=== PATIENT | female | born 1955 | race Caucasian/White ===

== ENCOUNTER 2018-05-05 13:54 | Emergency (ER) | payer OTHER ==
[2018-05-05] MEDS ORDERED: IBUPROFEN 400 MG TAB PO STA (14:59)
[2018-05-05] MEDS ORDERED: LIDOCAINE 5% PATCH TOPICAL STA (14:59)
[2018-05-05] MEDS ORDERED: METHOCARBAMOL 750 MG TAB PO STA (14:59)
--- NOTE | 2018-05-05 15:03 | ED ---
Back Pain HPI - General Chief Complaint: Back Pain/Injury Stated Complaint: Fall/Back Pain Time Seen by Provider: 05/05/18 14:45 Source: patient Limitations: no limitations - History of Present Illness Initial Comments: this is a 62-year-old female with history of diabetes who presents emergency department for left-sided flank pain. She states that she fell a couple of weeks ago between the toilet and the bathtub. She states that she hit her left flank on the bathtub and has had pain ever since. She states that she has not been taking anything for the pain however the pain has not subsided so she decided come emergency department. She denies any difficulty with ambulation. No numbness, tingling, or weakness in her lower [place]. No saddle anesthesia. No bowel or bladder incontinence. She states that she has not had any hematuria or dysuria. No fevers or chills. No shortness of breath or cough. She states that she presents emergency department because the pain was persistent and she wanted to be evaluated. - Related Data Home Medications Medication Instructions Recorded Confirmed Atorvastatin [Lipitor] 20 mg PO DAILY 05/05/18 05/05/18 Furosemide [Lasix] 20 mg PO BID 05/05/18 05/05/18 Gabapentin [Neurontin] 100 mg PO TID 05/05/18 05/05/18 Gemfibrozil [Lopid] 600 mg PO AC-BID 05/05/18 05/05/18 Hydrochlorothiazide 12.5 mg PO DAILY 05/05/18 05/05/18 Insulin Aspart [NovoLOG 10 unit SQ AC-BRKFST 05/05/18 05/05/18 (formulary)] Insulin Aspart [NovoLOG 10 unit SQ AC-LUNCH 05/05/18 05/05/18 (formulary)] Insulin Aspart [NovoLOG 12 unit SQ AC-SUPPER 05/05/18 05/05/18 (formulary)] Insulin Glargine [Lantus] 38 units SQ BID 05/05/18 05/05/18 Levothyroxine Sodium [Synthroid] 150 mcg PO DAILY 05/05/18 05/05/18 Metoprolol Succinate (ER) [Toprol 50 mg PO DAILY 05/05/18 05/05/18 Xl] Pioglitazone [Actos] 30 mg PO DAILY 05/05/18 05/05/18 Previous Rx's Medication Instructions Recorded Methocarbamol [Robaxin-750] 750 mg PO TID PRN #15 tablet 05/05/18 Allergies Allergy/AdvReac Type Severity Reaction Status Date / Time barium sulfate Allergy Unknown Verified 05/05/18 15:00 iodine Allergy Unknown Verified 05/05/18 15:00 Review of Systems ROS Statement: Those systems with pertinent positive or pertinent negative responses have been documented in the HPI. ROS Other: All systems not noted in ROS Statement are negative. Past Medical History Past Medical History: Diabetes Mellitus, Hyperlipidemia, Hypertension, Pneumonia , Thyroid Disorder History of Any Multi-Drug Resistant Organisms: None Reported Past Surgical History: No Surgical Hx Reported Past Psychological History: No Psychological Hx Reported Smoking Status: Never smoker Past Alcohol Use History: Rare Past Drug Use History: None Reported General Exam - General Exam Comments Initial Comments: Constitutional: [Awake alert] [Appears comfortable] Head: [Normocephalic atraumatic] Eyes: [no conjunctival injection] [No scleral icterus] [EOMI] Neck: [No JVD] [Supple] Heart: [Regular rate rhythm] [normal S1-S2] [no murmurs] Lungs: [Clear to auscultation bilaterally] [No wheezing] [No rales] Abdomen: [Soft] [nondistended] [nontender] Back: Left-sided lower flank pain radiating up into the thoracic flank. There is no midline lumbar or thoracic tenderness Extremities: [Non edematous] [DP pulses intact] [Radial pulses intact], 5 out of 5 strength in bilateral lower extremities, 2 out of 4 patellar reflexes, sensation intact to light touch in bilateral lower extremities Neuro: [A&Ox3] [No focal neurologic deficits] Psych: [Appropriate mood and affect] Limitations: no limitations Course Vital Signs 05/05/18 05/05/18 14:32 15:55 Temperature 100.2 F H 98.8 F Pulse Rate 74 Respiratory 20 Rate Blood Pressure 129/79 O2 Sat by Pulse 90 L Oximetry Medical Decision Making - Medical Decision Making This is a 62-year-old female who came in for left-sided flank pain for last couple of weeks after a fall. X-rays were reviewed and did not show any acute fracture. UA did show some pyuria however patient is not complaining of any dysuria or hematuria. Urine was obtained because of a falsely elevated temperature in triage. Repeat temperature at bedside was 98.8. I stated that if the patient did not have any symptoms of UTI with to treat her pyuria however if she developed any signs of urinary tract infection she needed to call her family doctor for a prescription for antibiotics. Otherwise the patient's pain was much improved with Lidoderm patch and Robaxin. At this time going to send the patient home with her prescription for Robaxin. 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 Told to take Motrin 400 mg 3 times a day for the next 7 days as well. Return emergency Department if she has worsening or changing symptoms. All questions answered. - Lab Data Lab Results 05/05/18 Range/Units 15:23 Urine Color Yellow Urine Appearance Clear (Clear) Urine pH 6.0 (5.0-8.0) Ur Specific [place] 1.012 (1.001-1.035) Urine Protein Trace H (Negative) Urine Glucose (UA) Negative (Negative) Urine Ketones Negative (Negative) Urine Blood Negative (Negative) Urine Nitrite Negative (Negative) Urine Bilirubin Negative (Negative) Urine Urobilinogen <2.0 (<2.0) mg/dL Ur Leukocyte Esterase Small H (Negative) Urine RBC 1 (0-5) /hpf Urine WBC 22 H (0-5) /hpf Urine WBC Clumps Rare H (None) /hpf Ur Squamous Epith Cells 2 (0-4) /hpf Amorphous Sediment Rare H (None) /hpf Urine Bacteria Rare H (None) /hpf Hyaline Casts 7 H (0-2) /lpf Urine Mucus Rare H (None) /hpf Disposition Clinical Impression: Flank pain Disposition: HOME SELF-CARE Condition: Stable Instructions: Rib Contusion (ED) Additional Instructions: net application support specialist Salonpas patches from pharmacy. Take 400mg Motrin three times a day for the next week. Prescriptions: Methocarbamol [Robaxin-750] 750 mg PO TID PRN #15 tablet PRN Reason: Muscle Ache Is patient prescribed a controlled substance at d/c from ED?: No Referrals: None,Stated [Primary Care Provider] - 1-2 days
[2018-05-05 15:44] LABS: Amorphous Sediment,Urine Rare /hpf; Appearance,Urine Clear (Clear); Bacteria,Urine Rare /hpf; Bilirubin,Urine Negative (Negative); Blood,Urine Negative (Negative); Color,Urine Yellow; Glucose,Urine (UA) Negative (Negative); Hyaline Casts,Urine 7 /lpf (0-2); Ketones,Urine Negative (Negative); Leukocyte Esterase,Urine Small (Negative); Mucus,Urine Rare /hpf; Nitrite,Urine Negative (Negative); Protein,Urine Trace (Negative); RBC,Urine 1 /hpf (0-5); Specific Gravity,Urine 1.012 (1.001-1.035); Squamous Epithelial Cell,Urine 2 /hpf (0-4); Urobilinogen,Urine <2.0 mg/dL (<2.0); WBC,Urine 22 /hpf (0-5)
--- NOTE | 2018-05-05 16:33 | XR ---
EXAMINATION TYPE: XR pelvis AP view DATE OF EXAM: 05/05/2018 COMPARISON: None HISTORY: Fall, left flank pain TECHNIQUE: AP pelvis FINDINGS: No acute fractures are evident. Femoral heads articulate with the acetabulum. Symphysis pub is and sacroiliac joints are normal. Normal colonic bowel gas is present. Phleboliths are present. IMPRESSION: 1. Normal AP pelvis
--- NOTE | 2018-05-05 16:36 | XR ---
EXAMINATION TYPE: XR ribs LT w pa chest xray DATE OF EXAM: 05/05/2018 COMPARISON: None HISTORY: Fall 2 weeks prior, left flank pain TECHNIQUE: Chest examined in the frontal projection. Left ribs are examined in 2 projections. FINDINGS: The heart size is prominent. Pulmonary vasculature is prominent. Lung hendricks are clear. No pneumothorax is evident. No displaced rib fractures are identified. IMPRESSION: 1. Normal left ribs
[2018-05-05 16:58] VITALS: BP 160/78; PULSE 67; RESP 18; TEMP 98.3
== END 2018-05-05 16:56 | disposition home or self-care (01) ==
LOC: EC 13:54
DX: R10.9 Unspecified abdominal pain (principal); E11.9 Type 2 diabetes mellitus without complications; E78.5 Hyperlipidemia, unspecified; I10 Essential (primary) hypertension; E07.9 Disorder of thyroid, unspecified; Z88.8 Allergy status to other drugs, medicaments and biological substances; Z91.048 Other nonmedicinal substance allergy status; Z79.4 Long term (current) use of insulin; Z79.84 Long term (current) use of oral hypoglycemic drugs; Z79.899 Other long term (current) drug therapy; W01.198A Fall on same level from slipping, tripping and stumbling with subsequent striking against other object, initial encounter; Y92.89 Other specified places as the place of occurrence of the external cause
CPT/HCPCS: 72170; 81001; 99284

== ENCOUNTER 2018-05-08 19:28 | Inpatient (IN) | payer OTHER ==
[2018-05-08] MEDS ORDERED: IPRATROPIUM-ALBUTEROL 3 ML NEB INHALATION STA (19:52)
[2018-05-08] MEDS ORDERED: FUROSEMIDE 10 MG/ML 4 ML VIAL IV STA (19:55)
--- NOTE | 2018-05-08 19:55 | ED ---
General Adult HPI - General Chief complaint: Recheck/Abnormal Lab/Rx Stated complaint: leg swelling & pain Time Seen by Provider: 05/08/18 19:51 Source: patient, RN notes reviewed Mode of arrival: wheelchair Limitations: no limitations - History of Present Illness Initial comments: This is a 63-year-old female who presents with complaints of progressively worsening shortness of breath exertional dyspnea over the past several weeks and months she does states she's had about 75 pound weight gain over last several months. She's been on various courses of water pills without any resolution she states she has increased swelling to her lower extremities increased abdominal girth. She has exertional dyspnea per family she states she cannot walk perhaps 3 steps without getting short of breath. No chest pain fevers chills nausea vomiting sweats or other symptoms she's had decreased urine output also. - Related Data Home Medications Medication Instructions Recorded Confirmed Atorvastatin [Lipitor] 20 mg PO DAILY 05/05/18 05/08/18 Furosemide [Lasix] 20 mg PO BID 05/05/18 05/08/18 Gabapentin [Neurontin] 100 mg PO TID 05/05/18 05/08/18 Gemfibrozil [Lopid] 600 mg PO AC-BID 05/05/18 05/08/18 Hydrochlorothiazide 12.5 mg PO DAILY 05/05/18 05/08/18 Insulin Aspart [NovoLOG 12 unit SQ AC-BRKFST 05/05/18 05/08/18 (formulary)] Insulin Aspart [NovoLOG 12 unit SQ AC-LUNCH 05/05/18 05/08/18 (formulary)] Insulin Aspart [NovoLOG 12 unit SQ AC-SUPPER 05/05/18 05/08/18 (formulary)] Insulin Glargine [Lantus] 38 units SQ BID 05/05/18 05/08/18 Levothyroxine Sodium [Synthroid] 150 mcg PO DAILY 05/05/18 05/08/18 Metoprolol Succinate (ER) [Toprol 50 mg PO DAILY 05/05/18 05/08/18 Xl] Pioglitazone [Actos] 30 mg PO DAILY 05/05/18 05/08/18 Previous Rx's Medication Instructions Recorded Methocarbamol [Robaxin-750] 750 mg PO TID PRN #15 tablet 05/05/18 Allergies Allergy/AdvReac Type Severity Reaction Status Date / Time barium sulfate Allergy Unknown Verified 05/08/18 19:56 iodine Allergy Unknown Verified 05/08/18 19:56 Review of Systems ROS Statement: Those systems with pertinent positive or pertinent negative responses have been documented in the HPI. ROS Other: All systems not noted in ROS Statement are negative. Past Medical History Past Medical History: Diabetes Mellitus, Hyperlipidemia, Hypertension, Pneumonia , Thyroid Disorder History of Any Multi-Drug Resistant Organisms: None Reported Past Surgical History: No Surgical Hx Reported Past Psychological History: No Psychological Hx Reported Smoking Status: Never smoker Past Alcohol Use History: Rare Past Drug Use History: None Reported General Exam - General Exam Comments Initial Comments: This is a well-developed obese appearing female who is awake alert oriented 3 Limitations: no limitations General appearance: alert, anxious Head exam: Present: atraumatic, normocephalic, normal inspection Eye exam: Present: normal appearance, PERRL, EOMI. Absent: scleral icterus, conjunctival injection, periorbital swelling ENT exam: Present: normal exam, mucous membranes moist Neck exam: Present: normal inspection. Absent: tenderness, meningismus, lymphadenopathy Respiratory exam: Present: wheezes, decreased breath sounds. Absent: respiratory distress, rales, rhonchi, stridor Cardiovascular Exam: Present: regular rate, normal rhythm, normal heart sounds. Absent: systolic murmur, diastolic murmur, rubs, gallop, clicks GI/Abdominal exam: Present: soft, normal bowel sounds. Absent: distended, tenderness, guarding, rebound, rigid Extremities exam: Present: normal inspection, full ROM, normal capillary refill , pedal edema (Pila edema going up to the knees in past.). Absent: tenderness, joint swelling, calf tenderness Back exam: Present: normal inspection Neurological exam: Present: alert, oriented X3, CN II-XII intact Psychiatric exam: Present: normal affect, normal mood Skin exam: Present: warm, dry, intact, normal color. Absent: rash Course Vital Signs 05/08/18 05/08/18 05/08/18 19:35 20:09 20:30 Temperature 98.9 F Pulse Rate 87 82 80 Respiratory 18 18 Rate Blood Pressure 119/72 143/68 O2 Sat by Pulse 89 L 96 Oximetry 05/08/18 05/08/18 05/08/18 20:42 21:11 22:55 Temperature Pulse Rate 80 78 79 Respiratory 20 20 Rate Blood Pressure 143/68 156/88 O2 Sat by Pulse 95 96 Oximetry 05/09/18 00:47 Temperature 98.7 F Pulse Rate 82 Respiratory 22 Rate Blood Pressure 126/71 O2 Sat by Pulse 96 Oximetry EKG Findings - EKG Results: EKG: interpreted by JAZMYN, sinus rhythm (Sinus rhythm rate of 88. Interval 150 to QRS 90 QT since QTC 388/469 possible left atrial enlargement nonspecific inferior findings.) Medical Decision Making - Medical Decision Making Reevaluation patient reveals some improvement after the updraft treatment. I did discuss findings with the patient family patient will be admitted case is to be discussed with Dr. Clifford. - Lab Data Result diagrams: 05/08/18 20:06 05/08/18 20:10 Lab Results 05/08/18 05/08/18 05/08/18 Range/Units 20:06 20:10 20:10 WBC 8.1 (3.8-10.6) k/uL RBC 4.49 (3.80-5.40) m/uL Hgb 12.8 (11.4-16.0) gm/dL Hct 40.1 (34.0-46.0) % MCV 89.4 (80.0-100.0) fL MCH 28.4 (25.0-35.0) pg MCHC 31.8 (31.0-37.0) g/dL RDW 15.5 (11.5-15.5) % Plt Count 367 (150-450) k/uL Neutrophils % 69 % Lymphocytes % 19 % Monocytes % 7 % Eosinophils % 3 % Basophils % 1 % Neutrophils # 5.6 (1.3-7.7) k/uL Lymphocytes # 1.5 (1.0-4.8) k/uL Monocytes # 0.6 (0-1.0) k/uL Eosinophils # 0.2 (0-0.7) k/uL Basophils # 0.0 (0-0.2) k/uL Hypochromasia Slight PT (9.0-12.0) sec INR (<1.2) APTT (22.0-30.0) sec D-Dimer (<0.60) mg/L FEU Sodium 140 (137-145) mmol/L Potassium 3.6 (3.5-5.1) mmol/L Chloride 96 L (98-107) mmol/L Carbon Dioxide 37 H (22-30) mmol/L Anion Gap 7 mmol/L BUN 21 H (7-17) mg/dL Creatinine 0.91 (0.52-1.04) mg/dL Est GFR (CKD-EPI)AfAm 78 (>60 ml/min/1.73 sqM) Est GFR (CKD-EPI)NonAf 68 (>60 ml/min/1.73 sqM) Glucose 131 H (74-99) mg/dL Calcium 9.1 (8.4-10.2) mg/dL Magnesium 1.8 (1.6-2.3) mg/dL Total Bilirubin 0.3 (0.2-1.3) mg/dL AST 31 (14-36) U/L ALT 37 (9-52) U/L Alkaline Phosphatase 67 (38-126) U/L Total Creatine Kinase 157 H (30-135) U/L CK-MB (CK-2) 2.5 H* (0.0-2.4) ng/mL CK-MB (CK-2) Rel Index 1.6 Troponin I 0.017 (0.000-0.034) ng/mL NT-Pro-B Natriuret Pep pg/mL Total Protein 6.1 L (6.3-8.2) g/dL Albumin 3.7 (3.5-5.0) g/dL 05/08/18 05/08/18 Range/Units 20:10 20:10 WBC (3.8-10.6) k/uL RBC (3.80-5.40) m/uL Hgb (11.4-16.0) gm/dL Hct (34.0-46.0) % MCV (80.0-100.0) fL MCH (25.0-35.0) pg MCHC (31.0-37.0) g/dL RDW (11.5-15.5) % Plt Count (150-450) k/uL Neutrophils % % Lymphocytes % % Monocytes % % Eosinophils % % Basophils % % Neutrophils # (1.3-7.7) k/uL Lymphocytes # (1.0-4.8) k/uL Monocytes # (0-1.0) k/uL Eosinophils # (0-0.7) k/uL Basophils # (0-0.2) k/uL Hypochromasia PT 10.1 (9.0-12.0) sec INR 1.0 (<1.2) APTT 27.5 (22.0-30.0) sec D-Dimer 2.43 H (<0.60) mg/L FEU Sodium (137-145) mmol/L Potassium (3.5-5.1) mmol/L Chloride (98-107) mmol/L Carbon Dioxide (22-30) mmol/L Anion Gap mmol/L BUN (7-17) mg/dL Creatinine (0.52-1.04) mg/dL Est GFR (CKD-EPI)AfAm (>60 ml/min/1.73 sqM) Est GFR (CKD-EPI)NonAf (>60 ml/min/1.73 sqM) Glucose (74-99) mg/dL Calcium (8.4-10.2) mg/dL Magnesium (1.6-2.3) mg/dL Total Bilirubin (0.2-1.3) mg/dL AST (14-36) U/L ALT (9-52) U/L Alkaline Phosphatase (38-126) U/L Total Creatine Kinase (30-135) U/L CK-MB (CK-2) (0.0-2.4) ng/mL CK-MB (CK-2) Rel Index Troponin I (0.000-0.034) ng/mL NT-Pro-B Natriuret Pep 1020 pg/mL Total Protein (6.3-8.2) g/dL Albumin (3.5-5.0) g/dL - Radiology Data Radiology results: report reviewed (I did review the imaging and report is some evidence of interstitial infiltrate atelectasis no evidence of PE.), image reviewed Disposition Clinical Impression: Bronchospasm, acute, Edema, Elevated d-dimer, Hypoxemia Disposition: ADMITTED IP TO THIS [facility] Condition: Stable Referrals: Tan Herndon MD [Primary Care Provider] - 1-2 days
[2018-05-08 20:20] LABS: Basophils % (A) 1 %; Eosinophils # (A) 0.2 k/uL (0-0.7); Eosinophils % (A) 3 %; HCT 40.1 % (34.0-46.0); HGB 12.8 gm/dL (11.4-16.0); Hypochromasia Slight; Lymphocytes # (A) 1.5 k/uL (1.0-4.8); Lymphocytes % (A) 19 %; MCH 28.4 pg (25.0-35.0); MCHC 31.8 g/dL (31.0-37.0); MCV 89.4 fL (80.0-100.0); Mean Platelet Volume 6.7; Monocytes # (A) 0.6 k/uL (0-1.0); Monocytes % (A) 7 %; Neutrophils # (A) 5.6 k/uL (1.3-7.7); Neutrophils % (A) 69 %; Platelet Count 367 k/uL (150-450); RBC 4.49 m/uL (3.80-5.40); RDW 15.5 % (11.5-15.5); WBC 8.1 k/uL (3.8-10.6)
[2018-05-08 20:38] LABS: Albumin 3.7 g/dL (3.5-5.0); Calcium 9.1 mg/dL (8.4-10.2); Magnesium 1.8 mg/dL (1.6-2.3); Potassium 3.6 mmol/L (3.5-5.1); Total Bilirubin 0.3 mg/dL (0.2-1.3); Total Protein 6.1 g/dL (6.3-8.2)
[2018-05-08 20:45] LABS: Partial Thromboplastin Time 27.5 sec (22.0-30.0); Prothrombin Time 10.1 sec (9.0-12.0)
[2018-05-08 20:50] LABS: Troponin I 0.017 ng/mL (0.000-0.034)
[2018-05-08 20:54] LABS: Creatine Kinase MB 2.5 ng/mL (0.0-2.4)
[2018-05-08 20:58] LABS: D-Dimer 2.43 mg/L FEU (<0.60)
[2018-05-08] MEDS ORDERED: diphenhydrAMINE 50 MG/ML 1 ML VIAL IVP STA (21:17)
[2018-05-08] MEDS ORDERED: FAMOTIDINE 20 MG/2 ML VIAL IV STA (21:17)
[2018-05-08] MEDS ORDERED: methylPREDNISolone SOD SUCCI 125 MG/2 ML VIAL IV STA (21:17)
--- NOTE | 2018-05-08 21:35 | XR ---
EXAMINATION TYPE: XR chest 2V DATE OF EXAM: 05/08/2018 COMPARISON: 05/05/2018 HISTORY: Difficulty breathing TECHNIQUE: Frontal and lateral views of the chest are obtained. FINDINGS: Heart is enlarged. There is some linear density in the left midlung. There is no pleural e ffusion. Bony thorax is intact. There are chest leads. IMPRESSION: Subsegmental atelectasis. Moderate cardiomegaly. No heart failure. No pulmonary consolid ation. No change.
--- NOTE | 2018-05-08 22:35 | CT ---
EXAMINATION TYPE: CT angio chest DATE OF EXAM: 05/08/2018 10:22 PM COMPARISON: HISTORY: Cough with SOB CT DLP: 759.5 mGycm Automated exposure control for dose reduction was used. CONTRAST: CTA scan of the thorax is performed with IV Contrast, patient injected with 100 mL of Isovue 370, pul monary embolism protocol. There are 3-D post processed images.. FINDINGS: Heart is enlarged. There is some patchy density at the lung bases. There is mild pleural thickening a t the posterior lung bases. There is no evidence of aortic aneurysm or dissection. There is normal contrast opacification of the pulmonary arteries. I see no filling defect. There are a few mediastinal and bronchial lymph nodes th at measure up to 1 cm. IMPRESSION: CARDIOMEGALY. NO EVIDENCE OF PULMONARY EMBOLISM. INTERSTITIAL INFILTRATES AND ATELECTASIS AT THE POST ERIOR LUNG BASES.
[2018-05-09] MEDS ORDERED: METHOCARBAMOL 750 MG TAB PO PRN (00:55)
[2018-05-09] MEDS ORDERED: cefTRIAXone IN SWFI 1,000 MG/10 ML SYRINGE IVP STA (01:18)
[2018-05-09] MEDS ORDERED: IPRATROPIUM-ALBUTEROL 3 ML NEB INHALATION PRN (01:21)
[2018-05-09 02:16] LABS: Glucose,Whole Blood 197 mg/dL (75-99)
[2018-05-09 02:21] VITALS: BMI 50.3
[2018-05-09] MEDS ORDERED: IPRATROPIUM-ALBUTEROL 3 ML NEB INHALATION SCH (04:00)
[2018-05-09] MEDS: LEVOTHYROXINE 75 MCG TAB PO SCH (06:05)
[2018-05-09] MEDS: methylPREDNISolone SOD SUCCI 125 MG/2 ML VIAL IV SCH ×4 (06:05→23:52)
[2018-05-09] MEDS: IPRATROPIUM-ALBUTEROL 3 ML NEB INHALATION SCH ×4 (06:55→19:46)
[2018-05-09 07:58] LABS: Glucose,Whole Blood 275 mg/dL (75-99)
[2018-05-09] MEDS: INSULIN ASPART 100 UNIT/ML 1 ML 10 ML VIAL SQ SCH ×5 (08:12→21:54)
[2018-05-09] MEDS: GEMFIBROZIL 600 MG TAB PO SCH ×2 (08:14→17:38)
[2018-05-09] MEDS: HEPARIN SODIUM,PORCINE 5,000 UNIT/ML 1 ML VIAL SQ SCH ×3 (08:14→23:52)
[2018-05-09] MEDS: ATORVASTATIN 20 MG TAB PO SCH (08:15)
[2018-05-09] MEDS: FUROSEMIDE 10 MG/ML 4 ML VIAL IV SCH ×2 (08:15→21:53)
[2018-05-09] MEDS: HYDROCHLOROTHIAZIDE 12.5 MG CAP PO SCH (08:16)
[2018-05-09] MEDS: METOPROLOL SUCCINATE (ER) 50 MG TAB.ER.24H PO SCH (08:16)
[2018-05-09] MEDS: GABAPENTIN 100 MG CAP PO SCH ×3 (08:16→21:56)
[2018-05-09] MEDS ORDERED: INSULIN DETEMIR 100 UNIT/ML 10 ML VIAL SQ SCH (09:00)
[2018-05-09] MEDS ORDERED: FUROSEMIDE 20 MG TAB PO SCH (09:00)
[2018-05-09] MEDS ORDERED: PIOGLITAZONE 30 MG TAB PO SCH (09:00)
--- NOTE | 2018-05-09 10:03 | P.HPIM ---
History of Present Illness H&P Date: 05/09/18 Chief Complaint: Shortness of breath, weight gain of 80 pounds This is a 63-year-old female patient of Dr. Herndon with past medical history of diabetes mellitus type 2, insulin requiring, hypothyroidism, hypertension, hyperlipidemia. Patient also gives history of recent treatment for pneumonia over 2 months but not needing hospitalization. She recently saw Dr. Zelaya contact lens flashing puncher who placed her on some medications and she states that since then over the past 3 months she has gained 80 pounds. She was sent to land appraiser, Dr. Daniel and is scheduled for stress testing on Saturday. She is unclear if she had any other testing done in the office. She is also been sent to Dr. Fournier and is scheduled for coronary function testing. She complains of her legs hurting and shortness of breath that has continued to worsen along with the weight gain. She has been on Lasix and hydrochlorothiazide but she states she goes more than 8 hours without voiding at all. She is able to walk only 3 steps. She has had no recent falls at home. Her last fall was on April 20 at which time she fell in the bathroom and had pain on the left side of her chest posteriorly but apparently was evaluated for this with no fractures. Patient has been afebrile, initial pulse ox 89% and patient has been on 2 L nasal cannula. White count is normal at 8.1, hemoglobin 12.8, CO2 is 37. D-dimer was elevated at 2.43 and patient underwent a CTA of the chest that was negative for pulmonary embolism. There was interstitial infiltrates and atelectasis at the posterior lung bases. Chest x- ray showed subsegmental atelectasis. Moderate cardiomegaly. No heart failure. No pulmonary consolidation. No change. Patient was apparently placed on insulin and Actos 3 months ago. In the emergency center she was given 1 dose of ceftriaxone, started on DuoNeb treatments and Solu-Medrol as well as Lasix 40 mg IV every 12 hours. Review of Systems All systems: negative Constitutional: Reports fatigue, Reports weakness, Reports weight gain, Denies chills, Denies fever, Denies poor appetite, Denies weight loss Eyes: denies blurred vision, denies pain Ears, nose, mouth and throat: Denies dental pain, Denies headache, Denies mouth pain, Denies sore throat, Denies vertigo Cardiovascular: Reports decreased exercise tolerance, Reports dyspnea on exertion, Reports edema, Reports leg edema, Reports shortness of breath, Denies chest pain, Denies lightheadedness, Denies syncope Respiratory: Reports cough, Reports dyspnea, Denies cough with sputum, Denies excessive sputum, Denies hemoptysis, Denies home oxygen, Denies wheezing Gastrointestinal: Reports bloating, Denies abdominal pain, Denies diarrhea, Denies melena, Denies nausea, Denies vomiting Genitourinary: Denies dysuria, Denies hematuria, Denies urgency Musculoskeletal: Denies frequent falls, Denies myalgias Integumentary: Denies pruritus, Denies rash, Denies wounds Neurological: Reports memory loss, Denies change in mentation, Denies numbness, Denies weakness Psychiatric: Denies anxiety, Denies depression Endocrine: Denies fatigue, Denies weight change Past Medical History Past Medical History: Diabetes Mellitus, Hyperlipidemia, Hypertension, Pneumonia , Thyroid Disorder History of Any Multi-Drug Resistant Organisms: None Reported Past Surgical History: No Surgical Hx Reported Additional Past Surgical History / Comment(s): Right knee meniscus repair. Past Anesthesia/Blood Transfusion Reactions: No Reported Reaction Past Psychological History: No Psychological Hx Reported Smoking Status: Never smoker Past Alcohol Use History: Rare Past Drug Use History: None Reported Medications and Allergies Home Medications Medication Instructions Recorded Confirmed Type Atorvastatin [Lipitor] 20 mg PO DAILY 05/05/18 05/08/18 History Furosemide [Lasix] 20 mg PO BID 05/05/18 05/08/18 History Gabapentin [Neurontin] 100 mg PO TID 05/05/18 05/08/18 History Gemfibrozil [Lopid] 600 mg PO AC-BID 05/05/18 05/08/18 History Hydrochlorothiazide 12.5 mg PO DAILY 05/05/18 05/08/18 History Insulin Aspart [NovoLOG 12 unit SQ AC-BRKFST 05/05/18 05/08/18 History (formulary)] Insulin Aspart [NovoLOG 12 unit SQ AC-LUNCH 05/05/18 05/08/18 History (formulary)] Insulin Aspart [NovoLOG 12 unit SQ AC-SUPPER 05/05/18 05/08/18 History (formulary)] Insulin Glargine [Lantus] 38 units SQ BID 05/05/18 05/08/18 History Levothyroxine Sodium [Synthroid] 150 mcg PO DAILY 05/05/18 05/08/18 History Methocarbamol [Robaxin-750] 750 mg PO TID PRN #15 tablet 05/05/18 05/08/18 Rx Metoprolol Succinate (ER) [Toprol 50 mg PO DAILY 05/05/18 05/08/18 History Xl] Pioglitazone [Actos] 30 mg PO DAILY 05/05/18 05/08/18 History Allergies Allergy/AdvReac Type Severity Reaction Status Date / Time barium sulfate Allergy Unknown Verified 05/09/18 02:31 iodine Allergy Unknown Verified 05/09/18 02:31 Physical Exam Vitals: Vital Signs Temp Pulse Pulse Resp BP BP Pulse Ox 05/09/18 07:04 87 16 05/09/18 06:55 87 16 96 05/09/18 05:55 97.1 F L 92 20 142/74 91 L 05/09/18 02:07 98.4 F 84 20 120/71 93 L 05/09/18 00:47 98.7 F 82 22 126/71 96 05/08/18 22:55 79 20 156/88 96 05/08/18 21:11 78 20 143/68 95 05/08/18 20:42 80 05/08/18 20:30 80 05/08/18 20:09 82 18 143/68 96 05/08/18 19:35 98.9 F 87 18 119/72 89 L Intake and Output 05/08/18 05/09/18 05/09/18 22:59 06:59 14:59 Other: Voiding Method Bedside Commode # Voids 2 Weight 133 kg 133 kg Gen: This is a morbidly obese 63-year-old female. She is sitting on the edge of the bed and appears to be mildly dyspneic with conversation. HEENT: Head is atraumatic, normocephalic. Pupils equal, round. Sclerae is anicteric. Oral mucous membranes are dry. No thrush noted. NECK: Supple. No lymphadenopathy. No thyromegaly. LUNGS: Decreased breath sounds. No wheezes or rhonchi. No intercostal retractions. HEART: Regular rate and rhythm. No murmur. ABDOMEN: Morbidly obese. Firm, bloated. Bowel sounds are present. No masses. No tenderness. EXTREMITIES: 2+ bilateral pedal edema. No calf tenderness. NEUROLOGICAL: Patient is awake, alert and oriented x3. Cranial nerves 2 through 12 are grossly intact. Results CBC & Chem 7: 05/08/18 20:06 05/08/18 20:10 Labs: Abnormal Lab Results - Last 24 Hours (Table) 05/08/18 05/08/18 05/08/18 Range/Units 20:10 20:10 20:10 D-Dimer 2.43 H (<0.60) mg/L FEU Chloride 96 L (98-107) mmol/L Carbon Dioxide 37 H (22-30) mmol/L BUN 21 H (7-17) mg/dL Glucose 131 H (74-99) mg/dL POC Glucose (mg/dL) (75-99) mg/dL Total Creatine Kinase 157 H (30-135) U/L CK-MB (CK-2) 2.5 H* (0.0-2.4) ng/mL Total Protein 6.1 L (6.3-8.2) g/dL 05/09/18 05/09/18 Range/Units 02:11 07:24 D-Dimer (<0.60) mg/L FEU Chloride (98-107) mmol/L Carbon Dioxide (22-30) mmol/L BUN (7-17) mg/dL Glucose (74-99) mg/dL POC Glucose (mg/dL) 197 H 275 H (75-99) mg/dL Total Creatine Kinase (30-135) U/L CK-MB (CK-2) (0.0-2.4) ng/mL Total Protein (6.3-8.2) g/dL Thrombosis Risk Factor Assmnt - DVT/VTE Prophylaxis DVT/VTE Prophylaxis: Pharmacologic Prophylaxis ordered - Choose All That Apply Any of the Below Risk Factors Present?: Yes Assessment and Plan Plan: 1. Acute hypoxic and hypercapnic respiratory failure secondary to acute on chronic diastolic heart failure, possible pneumonia or atelectasis. Patient's been started on Lasix 40 mg IV every 12 hours, azithromycin and ceftriaxone, DuoNeb treatments 4 times daily and as needed, IV Solu-Medrol at 60 mg IV every 6 hours. Daily weights and I&O's. Echocardiogram ordered. Pulmonary consult with Dr. Fournier and cardiology consult. Actos has been discontinued. 2. Diabetes mellitus type 2. Continue insulin, Levemir will be increased from 38 units to 42 units while on steroids twice daily, NovoLog 12 units with breakfast, 12 units with lunch, 15 units with supper and NovoLog scale. Discontinue Actos due to heart failure symptoms. 3. Diabetic neuropathy. Continue gabapentin 100 mg 3 times daily. 4. Hypothyroidism. Continue levothyroxine 150 mg daily. 5. Hyperlipidemia. Continue atorvastatin 20 mg daily and Lopid 600 mg twice daily. 6. Hypertension. Continue metoprolol succinate 50 mg daily, hydrochlorothiazide 12.5 mg daily. 7. GI prophylaxis. Pepcid. 8. DVT prophylaxis. Heparin subcu. Patient will be admitted to the hospital for a minimum of 2 night stay. Discharge plan: To be determined. PT and OT. Impression and plan of care have been directed as dictated by the signing physician. Hermelinda Gunter nurse practitioner acting as scribe for signing physician.
--- NOTE | 2018-05-09 10:36 | US ---
EXAMINATION TYPE: US venous doppler duplex LE DATE OF EXAM: 05/09/2018 9:31 AM COMPARISON: NONE CLINICAL HISTORY: Pain. SOB, leg swelling, no known prior DVT SIDE PERFORMED: Bilateral TECHNIQUE: The lower extremity deep venous system is examined utilizing real time linear array sonog dee with graded compression, doppler sonography and color-flow sonography. VESSELS IMAGED: External Iliac Vein (EIV) Common Femoral Vein Deep Femoral Vein Greater Saphenous Vein * Femoral Vein Popliteal Vein Small Saphenous Vein * Proximal Calf Veins (* superficial vessels) Large pt body habitus, difficult exam Right Leg: Negative for DVT Left Leg: Negative for DVT Grayscale, color doppler, spectral doppler imaging performed of the deep veins of the lower extremiti es. There is normal flow, compressibility, vascular waveforms. IMPRESSION: Slightly limited exam secondary to patient body habitus, however there is no gross evide nce of deep venous thrombosis within the bilateral lower extremities.
[2018-05-09] MEDS: FAMOTIDINE 20 MG TAB PO SCH (10:51)
[2018-05-09] MEDS: AZITHROMYCIN 500 MG in DEXTROSE 5% IN WATER 250 ML IVPB SCH ×2 (10:51)
--- NOTE | 2018-05-09 12:06 | P.CNPUL ---
History of Present Illness Consult date: 05/09/18 Requesting physician: Mackenzie Clifford Reason for consult: dyspnea, pneumonia Chief complaint: Shortness of breath History of present illness: This is a 63-year-old female patient being seen examined and evaluated on rounds. This patient came into the hospital with worsening shortness of breath with exertion as well as at rest and significant edema and weight gain. The patient states she's gained over 70 pounds in the last 6 weeks. She has been on Lasix and hydrochlorothiazide in the past however she states she doesn't feel re-she responds well from it. She does not have much urine output at home. She was seen and examined in the emergency room and admitted for further evaluation and workup. The patient has required supplemental oxygen to maintain oxygen saturations greater than 90%. She did have a CO2 of 37. Her d- dimer was 2.43. She did undergo a CTA which was negative for any pulmonary embolism there was some infiltrates and atelectasis at the posterior lung bases. Her chest x-ray did show some subsegmental atelectasis with cardiomegaly. Patient has been initiated on nebulizer treatments and IV steroids. She did undergo an echocardiogram which shows pending at this time. Doppler studies of bilateral lower extremities were negative. She has never used home oxygen. She has never been worked up for WALDO states that she snores significantly loud at night and does wake up gasping for air. 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 She has never had a PFT. She is afebrile no further complaints. He is currently on 4 L of supplemental oxygen via nasal cannula. Does have a dry cough. Review of Systems 14 point review of systems was completed and is negative unless noted above in the HPI Past Medical History Past Medical History: Diabetes Mellitus, Hyperlipidemia, Hypertension, Pneumonia , Thyroid Disorder History of Any Multi-Drug Resistant Organisms: None Reported Past Surgical History: No Surgical Hx Reported Additional Past Surgical History / Comment(s): Right knee meniscus repair. Past Anesthesia/Blood Transfusion Reactions: No Reported Reaction Past Psychological History: No Psychological Hx Reported Smoking Status: Never smoker Past Alcohol Use History: Rare Past Drug Use History: None Reported Medications and Allergies Home Medications Medication Instructions Recorded Confirmed Type Atorvastatin [Lipitor] 20 mg PO DAILY 05/05/18 05/08/18 History Furosemide [Lasix] 20 mg PO BID 05/05/18 05/08/18 History Gabapentin [Neurontin] 100 mg PO TID 05/05/18 05/08/18 History Gemfibrozil [Lopid] 600 mg PO AC-BID 05/05/18 05/08/18 History Hydrochlorothiazide 12.5 mg PO DAILY 05/05/18 05/08/18 History Insulin Aspart [NovoLOG 12 unit SQ AC-BRKFST 05/05/18 05/08/18 History (formulary)] Insulin Aspart [NovoLOG 12 unit SQ AC-LUNCH 05/05/18 05/08/18 History (formulary)] Insulin Aspart [NovoLOG 12 unit SQ AC-SUPPER 05/05/18 05/08/18 History (formulary)] Insulin Glargine [Lantus] 38 units SQ BID 05/05/18 05/08/18 History Levothyroxine Sodium [Synthroid] 150 mcg PO DAILY 05/05/18 05/08/18 History Methocarbamol [Robaxin-750] 750 mg PO TID PRN #15 tablet 05/05/18 05/08/18 Rx Metoprolol Succinate (ER) [Toprol 50 mg PO DAILY 05/05/18 05/08/18 History Xl] Pioglitazone [Actos] 30 mg PO DAILY 05/05/18 05/08/18 History Allergies Allergy/AdvReac Type Severity Reaction Status Date / Time barium sulfate Allergy Unknown Verified 05/09/18 02:31 iodine Allergy Unknown Verified 05/09/18 02:31 Physical Exam Vitals: Vital Signs Temp Pulse Pulse Resp BP BP Pulse Ox 05/09/18 11:10 88 18 05/09/18 11:01 91 18 05/09/18 07:04 87 16 05/09/18 06:55 87 16 96 05/09/18 05:55 97.1 F L 92 20 142/74 91 L 05/09/18 02:07 98.4 F 84 20 120/71 93 L 05/09/18 00:47 98.7 F 82 22 126/71 96 05/08/18 22:55 79 20 156/88 96 05/08/18 21:11 78 20 143/68 95 05/08/18 20:42 80 05/08/18 20:30 80 05/08/18 20:09 82 18 143/68 96 05/08/18 19:35 98.9 F 87 18 119/72 89 L Intake and Output 05/08/18 05/09/18 05/09/18 22:59 06:59 14:59 Intake Total 450 Output Total 300 Balance 150 Intake: Intake, IV Titration 250 Amount Azithromycin 500 mg In 250 Dextrose 5% in Water 250 ml @ 125 mls/hr IVPB DAILY [facility] Rx#:[id number] Oral 200 Output: Urine 300 Other: Voiding Method Bedside Commode Toilet Bedside Commode # Voids 2 1 Weight 133 kg 133 kg GENERAL EXAM: Alert, active, comfortable in no apparent distress. Morbidly obese HEAD: Normocephalic. EYES: Normal reaction of pupils, equal size. NOSE: Clear with pink turbinates. THROAT: No erythema or exudates. NECK: No masses, no JVD. CHEST: No chest wall deformity. LUNGS: Lung sounds with diminished air entry with no crackles, wheeze, rhonchi or dullness. CVS: S1 and S2 normal with no audible mumurs, regular rhythm. ABDOMEN: No hepatosplenomegaly, normal bowel sounds, no guarding or rigidity. EXTREMITIES: +2 edema noted, pedal pulses palpable. CENTRAL NERVOUS SYSTEM: No focal deficits, tone is normal in all 4 extremities. Results - Laboratory Findings CBC and BMP: 05/08/18 20:06 05/08/18 20:10 PT/INR, D-dimer PT 10.1 sec (9.0-12.0) 05/08/18 20:10 INR 1.0 (<1.2) 05/08/18 20:10 D-Dimer 2.43 mg/L FEU (<0.60) H 05/08/18 20:10 Abnormal lab findings: Abnormal Labs 05/08/18 05/08/18 05/08/18 20:10 20:10 20:10 D-Dimer 2.43 H Chloride 96 L Carbon Dioxide 37 H BUN 21 H Glucose 131 H POC Glucose (mg/dL) Total Creatine Kinase 157 H CK-MB (CK-2) 2.5 H* Total Protein 6.1 L 05/09/18 05/09/18 02:11 07:24 D-Dimer Chloride Carbon Dioxide BUN Glucose POC Glucose (mg/dL) 197 H 275 H Total Creatine Kinase CK-MB (CK-2) Total Protein - Diagnostic Findings Chest x-ray: report reviewed, image reviewed CT scan - chest: report reviewed, image reviewed U/S of Legs: report reviewed Assessment and Plan Assessment: Assessment Acute hypoxic and hypercapnic respiratory failure Atelectasis noted, doubtful pneumonia Suspect cor pulmonale and pulmonary hypertension awaiting echocardiogram Acute on chronic diastolic heart failure Suspect WALDO Diabetic neuropathy Hypertension Diabetes mellitus type 2 Plan Medications have been reviewed and will be continued as ordered. Gentle diuresis IV steroid taper Monitor I and O's and daily weights Blood sugar control Cardiology on consult Echocardiogram pending Bilateral lower extremity Doppler negative Continue with pulmonary hygiene, coughing and deep breathing exercises, and supportive care. Supplemental oxygen to maintain oxygen saturations of 92% or better. Continue nebulizer treatments. Initiate and encourage incentive spirometer Increase activity as tolerated PT and OT GI and DVT prophylaxis. We will continue to monitor labs/results and adjust treatment as necessary. Further recommendations pending. I performed an examination of the patient and discussed their management with the nurse practitioner. I have reviewed the nurse practitioner's note and agree with the documented findings and plan of care.
--- NOTE | 2018-05-09 12:12 | ECHOF ---
Referral Reason:LVF MEASUREMENTS -------- HEIGHT: 162.6 cm WEIGHT: 132.9 kg BP: 142/74 RVIDd: 3.4 cm (< 3.3) IVSd: 1.4 cm (0.6 - 1.1) LVIDd: 4.4 cm (3.9 - 5.3) LVPWd: 1.4 cm (0.6 - 1.1) IVSs: 1.9 cm LVIDs: 3.4 cm LVPWs: 1.8 cm LA Diam: 3.6 cm (2.7 - 3.8) LAESV Index (A-L): 20.28 ml/m Ao Diam: 3.4 cm (2.0 - 3.7) AV Cusp: 2.5 cm (1.5 - 2.6) MV EXCURSION: 12.169 mm (> 18.000) MV EF SLOPE: 32 mm/s (70 - 150) EPSS: 0.5 cm MV E Dale: 0.73 m/s MV DecT: 273 ms MV A Dale: 0.98 m/s MV E/A Ratio: 0.75 RAP: 5.00 mmHg RVSP: 39.99 mmHg FINDINGS -------- Sinus rhythm. This was a technically adequate study. The left ventricular size is normal. There is moderate concentric left ventricular hypertrophy. O verall left ventricular systolic function is normal with, an EF between 60 - 65 %. The right ventricle is mildly enlarged. Normal LA size by volume 22+/-6 ml/m2. The right atrium is normal in size. The aortic valve is trileaflet and appears structurally normal. Mild mitral annular calcification present. There is trace mitral regurgitation. Mild tricuspid regurgitation present. There is mild pulmonary hypertension. The right ventricular systolic pressure, as measured by Doppler, is 39.99mmHg. The pulmonic valve was not well visualized. The aortic root size is normal. IVC Not well visulized. There is no pericardial effusion. CONCLUSIONS -------- 1. Sinus rhythm. 2. This was a technically adequate study. 3. The left ventricular size is normal. 4. There is moderate concentric left ventricular hypertrophy. 5. Overall left ventricular systolic function is normal with, an EF between 60 - 65 %. 6. The right ventricle is mildly enlarged. 7. Normal LA size by volume 22+/-6 ml/m2. 8. The right atrium is normal in size. 9. The aortic valve is trileaflet and appears structurally normal. 10. Mild mitral annular calcification present. 11. There is trace mitral regurgitation. 12. Mild tricuspid regurgitation present. 13. There is mild pulmonary hypertension. 14. The right ventricular systolic pressure, as measured by Doppler, is 39.99mmHg. 15. The pulmonic valve was not well visualized. 16. The aortic root size is normal. 17. IVC Not well visulized. 18. There is no pericardial effusion. PUBLIC HEALTH POLICY ANALYST: Nadege Sharma RDCS
[2018-05-09 12:25] LABS: Glucose,Whole Blood 311 mg/dL (75-99)
[2018-05-09] MEDS ORDERED: INSULIN ASPART 100 UNIT/ML 1 ML 10 ML VIAL SQ SCH ×3 (12:30→17:30)
--- NOTE | 2018-05-09 13:38 | P.CRDCN ---
History of Present Illness History of present illness: Mrs. Braswell is a pleasant 63-year-old female past medical history significant for diabetes mellitus, hypertension, dyslipidemia, hypothyroid and mornid obesity. She recently started following with Dr. Daniel in the office. She saw him one time in early April and is in the process of cardiac work-up. She presented to the hospital with worsening lower extremity edema and shortness of breath. She states this has been going on since around the 8th of this month and has slowly gotten worse. She sometimes has to sleep sitting up in her recliner and has to make frequent stops when ambulating to catch her breath. She was recently started on actos and neurontin and says her symptoms seem to have started simultaneously. She was initiated on IV lasix last night and states the swelling has gone down in her legs somewhat. She is also receiving IV antibiotics and IV steroids. EKG reveals sinus mechanism with flattened T waves inferiorly as well as Q-wave. Chest x-ray reveals subsegmental atelectasis, moderate cardiomegaly with no acute cardiopulmonary process. CT angiogram reveals cardiomegaly, no evidence of PE, interstitial infiltrates and atelectasis at the posterior lung bases noted. Venous duplex revealed no evidence for DVT bilaterally. 2-D echocardiogram and Doppler study reveals preserved left ventricular systolic function with ejection fraction 60-65%, moderate concentric left ventricular hypertrophy mildly enlarged right ventricle, mild TR and mild pulmonary hypertension with an RVSP of 39.99 mmHg. Laboratory data reviewed, hemoglobin 12.8, platelets 367, d-dimer 2.43, sodium 140, potassium 3.6, creatinine 0.91, proBNP 1020, CK-MB 2.5 and troponin negative. Current cardiac medications include atorvastatin 20 mg daily, Lasix 20 mg twice a day, Lopid 600 mg twice a day, hydrochlorothiazide 12.5 mg daily and Toprol 50 mg daily. She also takes Actos, Robaxin, Synthroid, Lantus and Neurontin. Review of Systems At the time of my exam: CONSTITUTIONAL: Denies fever. Denies chills. EYES: Denies blurred vision. Denies vision changes. Denies eye pain. EARS, NOSE, MOUTH & THROAT: Denies headache. Denies sore throat. Denies ear pain. CARDIOVASCULAR: Denies chest pain. Complains of shortness of breath. Complains of orthopnea. Denies PND. Denies palpitations. Complains of bilateral lower extremity edema. RESPIRATORY: Denies cough. GASTROINTESTINAL: Denies abdominal pain. Denies diarrhea. Denies constipation. Denies nausea. Denies vomiting. MUSCULOSKELETAL: Denies myalgias. INTEGUMENTARY: Denies pruitis. Denies rash. NEUROLOGIC: Denies numbness. Denies tingling. Denies weakness. PSYCHIATRIC: Denies anxiety. Denies depression. ENDOCRINE: Denies fatigue. Denies weight change. Denies polydipsia. Denies polyurina. GENITOURINARY: Denies burning, hematuria or urgency with micturation. HEMATOLOGIC: Denies history of anemia. Denies bleeding. Past Medical History Past Medical History: Diabetes Mellitus, Hyperlipidemia, Hypertension, Pneumonia , Thyroid Disorder History of Any Multi-Drug Resistant Organisms: None Reported Past Surgical History: No Surgical Hx Reported Additional Past Surgical History / Comment(s): Right knee meniscus repair. Past Anesthesia/Blood Transfusion Reactions: No Reported Reaction Past Psychological History: No Psychological Hx Reported Smoking Status: Never smoker Past Alcohol Use History: Rare Past Drug Use History: None Reported Medications and Allergies Home Medications Medication Instructions Recorded Confirmed Type Atorvastatin [Lipitor] 20 mg PO DAILY 05/05/18 05/08/18 History Furosemide [Lasix] 20 mg PO BID 05/05/18 05/08/18 History Gabapentin [Neurontin] 100 mg PO TID 05/05/18 05/08/18 History Gemfibrozil [Lopid] 600 mg PO AC-BID 05/05/18 05/08/18 History Hydrochlorothiazide 12.5 mg PO DAILY 05/05/18 05/08/18 History Insulin Aspart [NovoLOG 12 unit SQ AC-BRKFST 05/05/18 05/08/18 History (formulary)] Insulin Aspart [NovoLOG 12 unit SQ AC-LUNCH 05/05/18 05/08/18 History (formulary)] Insulin Aspart [NovoLOG 12 unit SQ AC-SUPPER 05/05/18 05/08/18 History (formulary)] Insulin Glargine [Lantus] 38 units SQ BID 05/05/18 05/08/18 History Levothyroxine Sodium [Synthroid] 150 mcg PO DAILY 05/05/18 05/08/18 History Methocarbamol [Robaxin-750] 750 mg PO TID PRN #15 tablet 05/05/18 05/08/18 Rx Metoprolol Succinate (ER) [Toprol 50 mg PO DAILY 05/05/18 05/08/18 History Xl] Pioglitazone [Actos] 30 mg PO DAILY 05/05/18 05/08/18 History Allergies Allergy/AdvReac Type Severity Reaction Status Date / Time barium sulfate Allergy Unknown Verified 05/09/18 02:31 iodine Allergy Unknown Verified 05/09/18 02:31 Physical Exam Vitals: Vital Signs Temp Pulse Pulse Resp BP BP Pulse Ox 05/09/18 11:10 88 18 05/09/18 11:01 91 18 05/09/18 07:04 87 16 05/09/18 06:55 87 16 96 05/09/18 05:55 97.1 F L 92 20 142/74 91 L 05/09/18 02:07 98.4 F 84 20 120/71 93 L 05/09/18 00:47 98.7 F 82 22 126/71 96 05/08/18 22:55 79 20 156/88 96 05/08/18 21:11 78 20 143/68 95 05/08/18 20:42 80 05/08/18 20:30 80 05/08/18 20:09 82 18 143/68 96 05/08/18 19:35 98.9 F 87 18 119/72 89 L Intake and Output 05/08/18 05/09/18 05/09/18 22:59 06:59 14:59 Intake Total 450 Output Total 300 Balance 150 Intake: Intake, IV Titration 250 Amount Azithromycin 500 mg In 250 Dextrose 5% in Water 250 ml @ 125 mls/hr IVPB DAILY [facility] Rx#:[id number] Oral 200 Output: Urine 300 Other: Voiding Method Bedside Commode Toilet Bedside Commode # Voids 2 1 Weight 133 kg 133 kg Blood pressure 142/74 heart rate 92 afebrile maintaining oxygen saturation on nasal cannula GENERAL: This is a 66-[id number]-[id number]-year-old female in no apparent distress at the time of my examination. Morbid obesity. HEENT: Head is atraumatic, normocephalic. Pupils are equal, round. Sclerae anicteric. Conjunctivae are clear. Mucous membranes of the mouth are moist. Neck is supple. There is no jugular venous distention. No carotid bruit is heard. LUNGS: Clear to auscultation no wheezes, rales or rhonchi. No chest wall tenderness is noted on palpation or with deep breathing. Diminished b/l. HEART: Regular rate and rhythm without murmurs, rubs or gallops. S1 and S2 heard. ABDOMEN: Soft, nontender. Bowel sounds are heard. No organomegaly noted. EXTREMITIES: 2+ bilateral lower extremity pitting peripheral edema and no calf tenderness noted. VASCULAR: Radial and dorsalis pedis pulses palpated, no evidence of clubbing. NEUROLOGIC: Patient is awake, alert and oriented x3. Results 05/08/18 20:06 05/08/18 20:10 Cardiac Enzymes 05/08/18 05/08/18 Range/Units 20:10 20:10 AST 31 (14-36) U/L CK-MB (CK-2) 2.5 H* (0.0-2.4) ng/mL Troponin I 0.017 (0.000-0.034) ng/mL Coagulation 05/08/18 Range/Units 20:10 PT 10.1 (9.0-12.0) sec APTT 27.5 (22.0-30.0) sec CBC 05/08/18 Range/Units 20:06 WBC 8.1 (3.8-10.6) k/uL RBC 4.49 (3.80-5.40) m/uL Hgb 12.8 (11.4-16.0) gm/dL Hct 40.1 (34.0-46.0) % Plt Count 367 (150-450) k/uL Comprehensive Metabolic Panel 05/08/18 Range/Units 20:10 Sodium 140 (137-145) mmol/L Potassium 3.6 (3.5-5.1) mmol/L Chloride 96 L (98-107) mmol/L Carbon Dioxide 37 H (22-30) mmol/L BUN 21 H (7-17) mg/dL Creatinine 0.91 (0.52-1.04) mg/dL Glucose 131 H (74-99) mg/dL Calcium 9.1 (8.4-10.2) mg/dL AST 31 (14-36) U/L ALT 37 (9-52) U/L Alkaline Phosphatase 67 (38-126) U/L Total Protein 6.1 L (6.3-8.2) g/dL Albumin 3.7 (3.5-5.0) g/dL Current Medications Generic Name Dose Route Start Last Admin Trade Name Jenny PRN Reason Stop Dose Admin Albuterol/Ipratropium 3 ml 05/09/18 08:00 05/09/18 11:00 Duoneb 0.5 Mg-3 Mg/3 Ml Soln INHALATION 3 ml RT-QID [facility] Administration Albuterol/Ipratropium 3 ml 05/09/18 01:21 Duoneb 0.5 Mg-3 Mg/3 Ml Soln INHALATION RT-Q2H PRN Shortness Of Breath Or Wheezing Atorvastatin Calcium 20 mg 05/09/18 09:00 05/09/18 08:15 Lipitor PO 20 mg DAILY [facility] Administration Ceftriaxone Sodium 1,000 mg 05/10/18 02:00 Rocephin IVP Q24H [facility]IM[facility] Famotidine 20 mg 05/09/18 11:00 05/09/18 10:51 Pepcid PO 20 mg DAILY [facility] Administration Furosemide 40 mg 05/09/18 09:00 05/09/18 08:15 Lasix IV 40 mg Q12HR [facility]IM[facility] Administration Gabapentin 100 mg 05/09/18 09:00 05/09/18 08:16 Neurontin PO 100 mg TID [facility] Administration Gemfibrozil 600 mg 05/09/18 07:30 05/09/18 08:14 Lopid PO 600 mg AC-BID [facility] Administration Heparin Sodium (Porcine) 5,000 unit 05/09/18 08:00 05/09/18 08:14 Heparin SQ 5,000 unit Q8HR [facility]IMA Administration Hydrochlorothiazide 12.5 mg 05/09/18 09:00 05/09/18 08:16 Hydrodiuril PO 12.5 mg DAILY [facility] Administration Azithromycin 500 mg/ Dextrose/ 250 mls @ 125 mls/hr 05/09/18 10:30 05/09/18 10:51 Water IVPB 125 mls/hr DAILY [facility] Administration Insulin Aspart 12 unit 05/09/18 12:30 05/09/18 12:53 Novolog SQ 12 unit AC-LUNCH [facility] Administration Insulin Aspart 12 unit 05/09/18 07:30 05/09/18 08:12 Novolog SQ 12 unit AC-BRKFST [facility] Administration Insulin Aspart 0 unit 05/09/18 07:30 05/09/18 12:54 Novolog SQ 8 unit ACHS [facility] Administration Protocol Insulin Aspart 15 unit 05/09/18 17:30 Novolog SQ AC-SUPPER [facility] Insulin Detemir 42 unit 05/09/18 21:00 Levemir SQ BID [facility] Levothyroxine Sodium 150 mcg 05/09/18 06:30 05/09/18 06:05 Synthroid PO 150 mcg 0630 [facility] Administration Methocarbamol 750 mg 05/09/18 00:55 05/09/18 02:42 Robaxin PO 750 mg TID PRN Administration Muscle Ache Methylprednisolone Sodium Succinate 60 mg 05/09/18 06:00 05/09/18 11:28 Solu-Medrol IV 60 mg Q6HR [facility] Administration Metoprolol Succinate 50 mg 05/09/18 09:00 05/09/18 08:16 Toprol Xl PO 50 mg DAILY [facility] Administration Intake and Output 05/08/18 05/09/18 05/09/18 22:59 06:59 14:59 Intake Total 450 Output Total 300 Balance 150 Intake: Intake, IV Titration 250 Amount Azithromycin 500 mg In 250 Dextrose 5% in Water 250 ml @ 125 mls/hr IVPB DAILY [facility] Rx#:[id number] Oral 200 Output: Urine 300 Other: Voiding Method Bedside Commode Toilet Bedside Commode # Voids 2 1 Weight 133 kg 133 kg 05/08/18 20:06 05/08/18 20:10 Assessment and Plan Assessment: ASSESSMENT Acute diastolic heart failure secondary to left ventricular hypertrophy, mildly elevated proBNP, lower extremity edema and orthopnea Acute hypoxic respiratory failure, pulse ox 89% on room air on admission Pulmonary hypertension, RVSP 39.99 mmHg. History of chemical exposure at work with [employer]. Hypertension Diabetes mellitus Dyslipidemia, continue atorvastatin PLAN 2D echocardiogram and doppler study has been reviewed. Continue with IV diuresis with strict intake and output documentation and daily weights. Discontinue actos, side effect of heart failure and symptoms seemed to start around time of initiation. Follow kidney function and electrolytes daily. Apply patient monitor. Further recommendations to follow based on clinical course. Thank you kindly for this consultation. The above impression and plan of care have been discussed and directed by the signing physician. Charisma Finn, nurse practitioner, acting as scribe for signing physician.
[2018-05-09] MEDS ORDERED: BENZONATATE 100 MG CAP PO PRN (16:14)
[2018-05-09 17:13] LABS: Glucose,Whole Blood 324 mg/dL (75-99)
[2018-05-09 21:36] LABS: Glucose,Whole Blood 248 mg/dL (75-99)
[2018-05-09] MEDS: INSULIN DETEMIR 100 UNIT/ML 10 ML VIAL SQ SCH (21:55)
[2018-05-10 01:21] VITALS: RESP 20
[2018-05-10] MEDS ORDERED: cefTRIAXone IN SWFI 1,000 MG/10 ML SYRINGE IVP SCH (02:00)
[2018-05-10] MEDS: methylPREDNISolone SOD SUCCI 125 MG/2 ML VIAL IV SCH ×2 (05:39→11:38)
[2018-05-10] MEDS: LEVOTHYROXINE 75 MCG TAB PO SCH (05:40)
[2018-05-10 07:37] LABS: Glucose,Whole Blood 188 mg/dL (75-99)
[2018-05-10] MEDS: AZITHROMYCIN 500 MG in DEXTROSE 5% IN WATER 250 ML IVPB SCH ×2 (07:49)
[2018-05-10] MEDS: HEPARIN SODIUM,PORCINE 5,000 UNIT/ML 1 ML VIAL SQ SCH (07:50)
[2018-05-10] MEDS: GEMFIBROZIL 600 MG TAB PO SCH (07:50)
[2018-05-10] MEDS: ATORVASTATIN 20 MG TAB PO SCH (07:51)
[2018-05-10] MEDS: FAMOTIDINE 20 MG TAB PO SCH (07:51)
[2018-05-10] MEDS: GABAPENTIN 100 MG CAP PO SCH (07:51)
[2018-05-10] MEDS: METOPROLOL SUCCINATE (ER) 50 MG TAB.ER.24H PO SCH (07:52)
[2018-05-10] MEDS: INSULIN ASPART 100 UNIT/ML 1 ML 10 ML VIAL SQ SCH ×2 (07:53)
[2018-05-10 08:03] VITALS: BP 156/79; TEMP 97.7
[2018-05-10] MEDS: IPRATROPIUM-ALBUTEROL 3 ML NEB INHALATION SCH ×2 (08:21→11:51)
[2018-05-10 08:41] LABS: Anion Gap 11 mmol/L; Blood Urea Nitrogen 26 mg/dL (7-17); Calcium 9.2 mg/dL (8.4-10.2); Chloride 88 mmol/L (98-107); Glucose 199 mg/dL (74-99); Potassium 3.9 mmol/L (3.5-5.1); Sodium 139 mmol/L (137-145)
[2018-05-10] MEDS: INSULIN DETEMIR 100 UNIT/ML 10 ML VIAL SQ SCH (08:46)
[2018-05-10] MEDS: HYDROCHLOROTHIAZIDE 12.5 MG CAP PO SCH (08:50)
[2018-05-10] MEDS: FUROSEMIDE 10 MG/ML 4 ML VIAL IV SCH (08:50)
[2018-05-10 08:56] LABS: Carbon Dioxide 40 mmol/L (22-30)
[2018-05-10 12:03] VITALS: PULSE 92
[2018-05-10 12:13] LABS: Glucose,Whole Blood 257 mg/dL (75-99)
== END 2018-05-10 12:32 | disposition home or self-care (01) | DRG 291 ==
LOC: EC 19:28 → 4MS4W 05-09 00:53
PROVIDERS: ADMIT Internal Medicine; ATTEND Internal Medicine
DX: I11.0 Hypertensive heart disease with heart failure (principal); J96.01 Acute respiratory failure with hypoxia; J96.02 Acute respiratory failure with hypercapnia; J98.11 Atelectasis; Z68.43 Body mass index [BMI] 50.0-59.9, adult; E03.9 Hypothyroidism, unspecified; E11.40 Type 2 diabetes mellitus with diabetic neuropathy, unspecified; E78.5 Hyperlipidemia, unspecified; I27.20 Pulmonary hypertension, unspecified; I50.33 Acute on chronic diastolic (congestive) heart failure; R79.1 Abnormal coagulation profile; E66.01 Morbid (severe) obesity due to excess calories; I27.81 Cor pulmonale (chronic); G47.33 Obstructive sleep apnea (adult) (pediatric); I07.1 Rheumatic tricuspid insufficiency; Z79.4 Long term (current) use of insulin; Z79.899 Other long term (current) drug therapy; Z79.890 Hormone replacement therapy; Z88.8 Allergy status to other drugs, medicaments and biological substances; Z91.041 Radiographic dye allergy status; Z77.098 Contact with and (suspected) exposure to other hazardous, chiefly nonmedicinal, chemicals; Z87.01 Personal history of pneumonia (recurrent); Z91.81 History of falling
CPT/HCPCS: 36415; 71046; 71275; 80048; 80053; 82550; 82553; 83735; 83880; 84484; 85025; 85379; 85610; 85730; 93005; 93306; 93970; 94640; 94760; 96374; 96375; 99285

== ENCOUNTER 2018-05-16 17:02 | Inpatient (IN) | payer OTHER ==
[2018-05-16] MEDS ORDERED: IPRATROPIUM-ALBUTEROL 3 ML NEB INHALATION STA (19:06)
--- NOTE | 2018-05-16 19:08 | ED ---
General Adult HPI - General Chief complaint: Shortness of Breath Stated complaint: CYN, bilat leg swelling Time Seen by Provider: 05/16/18 19:04 Source: patient, RN notes reviewed, old records reviewed Mode of arrival: wheelchair Limitations: no limitations - History of Present Illness Initial comments: This is a 63-year-old female the ER for significant short of breath, exertional dyspnea. Weakness. Patient is unable to stay away, she falls asleep, she has lower extremity edema that is significant. Patient's activity level is severely diminished, no other complaints no chest pain. Patient is not currently blood thinners but she is on Lasix with no significant urinary output - Related Data Home Medications Medication Instructions Recorded Confirmed Atorvastatin [Lipitor] 20 mg PO DAILY 05/05/18 05/16/18 Gabapentin [Neurontin] 100 mg PO TID 05/05/18 05/16/18 Gemfibrozil [Lopid] 600 mg PO AC-BID 05/05/18 05/16/18 Insulin Aspart [NovoLOG 12 unit SQ AC-TID 05/05/18 05/16/18 (formulary)] Levothyroxine Sodium [Synthroid] 150 mcg PO DAILY 05/05/18 05/16/18 Metoprolol Succinate (ER) [Toprol 50 mg PO DAILY 05/05/18 05/16/18 XL] Benzonatate [Tessalon Perles] 100 mg PO TID 05/16/18 05/16/18 Insulin Glargine [Lantus] 40 units SQ BID 05/16/18 05/16/18 Previous Rx's Medication Instructions Recorded Azithromycin [Zithromax] 250 mg PO DAILY #7 tab 05/10/18 Famotidine [Pepcid] 20 mg PO DAILY #60 tab 05/10/18 Furosemide [Lasix] 40 mg PO BID #60 tablet 05/10/18 Spironolactone [Aldactone] 25 mg PO DAILY #30 tablet 05/10/18 Allergies Allergy/AdvReac Type Severity Reaction Status Date / Time barium sulfate Allergy Unknown Verified 05/16/18 19:44 iodine Allergy Unknown Verified 05/16/18 19:44 Review of Systems ROS Statement: Those systems with pertinent positive or pertinent negative responses have been documented in the HPI. ROS Other: All systems not noted in ROS Statement are negative. Past Medical History Past Medical History: Diabetes Mellitus, Hyperlipidemia, Hypertension, Pneumonia , Thyroid Disorder History of Any Multi-Drug Resistant Organisms: None Reported Past Surgical History: No Surgical Hx Reported Additional Past Surgical History / Comment(s): Right knee meniscus repair. Past Anesthesia/Blood Transfusion Reactions: No Reported Reaction Past Psychological History: No Psychological Hx Reported Smoking Status: Never smoker Past Alcohol Use History: Rare Past Drug Use History: None Reported General Exam Limitations: no limitations General appearance: alert, anxious, in distress Head exam: Present: atraumatic, normocephalic, normal inspection Eye exam: Present: normal appearance, PERRL, EOMI. Absent: scleral icterus, conjunctival injection, periorbital swelling ENT exam: Present: normal exam, mucous membranes moist Neck exam: Present: normal inspection. Absent: tenderness, meningismus, lymphadenopathy Respiratory exam: Present: normal lung sounds bilaterally. Absent: respiratory distress, wheezes, rales, rhonchi, stridor Cardiovascular Exam: Present: regular rate, normal rhythm, normal heart sounds. Absent: systolic murmur, diastolic murmur, rubs, gallop, clicks GI/Abdominal exam: Present: soft, normal bowel sounds. Absent: distended, tenderness, guarding, rebound, rigid Extremities exam: Present: normal inspection, full ROM, normal capillary refill. Absent: tenderness, pedal edema, joint swelling, calf tenderness Back exam: Present: normal inspection Neurological exam: Present: alert, oriented X3, CN II-XII intact Psychiatric exam: Present: normal affect, normal mood Skin exam: Present: warm, dry, intact, normal color. Absent: rash Course Vital Signs 05/16/18 05/16/18 05/16/18 18:47 19:26 19:50 Temperature 98.8 F Pulse Rate 83 84 88 Respiratory 18 Rate Blood Pressure 127/81 O2 Sat by Pulse 91 L Oximetry - Reevaluation(s) Reevaluation #1: 05/16/18 20:17 Prior ER evaluation is thoroughly reviewed Reevaluation #2: 05/16/18 20:17 No improvement breathing treatment EKG Findings - EKG Comments: EKG Findings:: EKG shows sinus rhythm rate of 82, CT 152, QRS 86, QTc 490. Medical Decision Making - Medical Decision Making 63 female the ER was significant shortness of breath hypoxia, patient to be admitted for continued treatment and evaluation of low pulse ox - Lab Data Result diagrams: 05/16/18 19:42 Lab Results 05/16/18 05/16/18 Range/Units 19:42 19:42 WBC 11.0 H (3.8-10.6) k/uL RBC 4.75 (3.80-5.40) m/uL Hgb 13.2 (11.4-16.0) gm/dL Hct 42.7 (34.0-46.0) % MCV 89.9 (80.0-100.0) fL MCH 27.8 (25.0-35.0) pg MCHC 31.0 (31.0-37.0) g/dL RDW 15.7 H (11.5-15.5) % Plt Count 317 (150-450) k/uL Neutrophils % 67 % Lymphocytes % 22 % Monocytes % 6 % Eosinophils % 3 % Basophils % 1 % Neutrophils # 7.4 (1.3-7.7) k/uL Lymphocytes # 2.4 (1.0-4.8) k/uL Monocytes # 0.6 (0-1.0) k/uL Eosinophils # 0.3 (0-0.7) k/uL Basophils # 0.1 (0-0.2) k/uL Hypochromasia Slight Total Creatine Kinase 115 (30-135) U/L - Radiology Data Radiology results: report reviewed (Chest x-rays negative for acute disease), image reviewed Disposition Clinical Impression: Bronchospasm, acute, Edema, Dyspnea, Hypoxemia Disposition: ADMITTED IP TO THIS [facility] Condition: Good Is patient prescribed a controlled substance at d/c from ED?: No Referrals: Tan Herndon MD [Primary Care Provider] - 1-2 days
[2018-05-16 19:51] LABS: Basophils # (A) 0.1 k/uL (0-0.2); Basophils % (A) 1 %; Eosinophils # (A) 0.3 k/uL (0-0.7); Eosinophils % (A) 3 %; HCT 42.7 % (34.0-46.0); HGB 13.2 gm/dL (11.4-16.0); Hypochromasia Slight; Lymphocytes # (A) 2.4 k/uL (1.0-4.8); Lymphocytes % (A) 22 %; MCH 27.8 pg (25.0-35.0); MCV 89.9 fL (80.0-100.0); Mean Platelet Volume 7.9; Monocytes # (A) 0.6 k/uL (0-1.0); Monocytes % (A) 6 %; Neutrophils # (A) 7.4 k/uL (1.3-7.7); Neutrophils % (A) 67 %; Platelet Count 317 k/uL (150-450); RBC 4.75 m/uL (3.80-5.40); RDW 15.7 % (11.5-15.5)
[2018-05-16 20:04] LABS: Partial Thromboplastin Time 26.4 sec (22.0-30.0); Prothrombin Time 10.2 sec (9.0-12.0)
[2018-05-16 20:10] LABS: ALT 33 U/L (9-52); Albumin 3.8 g/dL (3.5-5.0); Alkaline Phosphatase 57 U/L (38-126); Anion Gap 9 mmol/L; Carbon Dioxide 34 mmol/L (22-30); Chloride 94 mmol/L (98-107); Glucose 122 mg/dL (74-99); Magnesium 1.9 mg/dL (1.6-2.3); Sodium 137 mmol/L (137-145); Total Bilirubin 0.6 mg/dL (0.2-1.3); Total Protein 6.2 g/dL (6.3-8.2)
--- NOTE | 2018-05-16 20:10 | XR ---
EXAMINATION TYPE: XR chest 2V DATE OF EXAM: 05/16/2018 COMPARISON: 05/08/2018 HISTORY: Difficulty breathing TECHNIQUE: Frontal and lateral views of the chest are obtained. FINDINGS: There is no heart failure nor confluent pneumonic infiltrate. Costophrenic angles are augusto r. Bony thorax is intact. Heart appears enlarged. IMPRESSION: Cardiomegaly. No heart failure. There is some lingula subsegmental atelectasis or scarri ng without change compared to old exam.
[2018-05-16 20:19] LABS: D-Dimer 0.74 mg/L FEU (<0.60)
[2018-05-16 20:22] LABS: AST 44 U/L (14-36); Blood Urea Nitrogen 21 mg/dL (7-17); Troponin I 0.032 ng/mL (0.000-0.034)
[2018-05-16 20:24] LABS: Creatine Kinase MB 3.2 ng/mL (0.0-2.4)
[2018-05-16] MEDS: FUROSEMIDE 10 MG/ML 4 ML VIAL IV SCH (20:27)
[2018-05-16 22:27] LABS: Glucose,Whole Blood 134 mg/dL (75-99)
[2018-05-16] MEDS ORDERED: SPIRONOLACTONE 25 MG TAB PO SCH (22:30)
[2018-05-16] MEDS: BENZONATATE 100 MG CAP PO SCH (22:59)
[2018-05-16] MEDS: GABAPENTIN 100 MG CAP PO SCH (22:59)
[2018-05-16] MEDS: INSULIN DETEMIR 100 UNIT/ML 10 ML VIAL SQ SCH (22:59)
[2018-05-16] MEDS: GEMFIBROZIL 600 MG TAB PO SCH (22:59)
[2018-05-17] MEDS: LEVOTHYROXINE 75 MCG TAB PO SCH (04:16)
[2018-05-17] MEDS: FUROSEMIDE 10 MG/ML 4 ML VIAL IV SCH ×3 (04:17→21:25)
[2018-05-17 07:33] LABS: Glucose,Whole Blood 72 mg/dL (75-99)
[2018-05-17] MEDS: IPRATROPIUM-ALBUTEROL 3 ML NEB INHALATION SCH ×4 (08:17→20:49)
[2018-05-17] MEDS: BENZONATATE 100 MG CAP PO SCH ×3 (08:51→21:24)
[2018-05-17] MEDS: ENOXAPARIN 40 MG/0.4 ML SYRINGE SQ SCH (08:51)
[2018-05-17] MEDS: METOPROLOL SUCCINATE (ER) 50 MG TAB.ER.24H PO SCH (08:51)
[2018-05-17] MEDS: GABAPENTIN 100 MG CAP PO SCH (08:51)
[2018-05-17] MEDS: FAMOTIDINE 20 MG TAB PO SCH (08:51)
[2018-05-17] MEDS: INSULIN DETEMIR 100 UNIT/ML 10 ML VIAL SQ SCH ×2 (08:52→21:26)
[2018-05-17] MEDS: INSULIN ASPART 100 UNIT/ML 1 ML 10 ML VIAL SQ SCH ×4 (08:52→21:25)
[2018-05-17] MEDS ORDERED: ATORVASTATIN 20 MG TAB PO SCH (09:00)
[2018-05-17 10:07] VITALS: BMI 51.1
[2018-05-17] MEDS: GEMFIBROZIL 600 MG TAB PO SCH (10:11)
[2018-05-17 11:59] LABS: Glucose,Whole Blood 65 mg/dL (75-99)
[2018-05-17 12:18] LABS: Glucose,Whole Blood 62 mg/dL (75-99)
[2018-05-17 12:46] LABS: Glucose,Whole Blood 104 mg/dL (75-99)
--- NOTE | 2018-05-17 16:11 | P.HPIM ---
History of Present Illness H&P Date: 05/17/18 This is a 63-year-old female patient of Dr. Herndon with past medical history of diabetes mellitus type 2, insulin requiring, hypothyroidism, hypertension, hyperlipidemia. Patient also gives history of recent treatment for pneumonia over 2 months but not needing hospitalization. She recently saw Dr. Harrell car rental manager who placed her onactos and she states that since then over the past 3 months she has gained 80 pounds. She was sent to metal fabricator welder, Dr. Daniel and is scheduled for stress testing on Saturday. She is unclear if she had any other testing done in the office. She is also been sent to Dr. Fournier and is scheduled for coronary function testing. She complains of her legs hurting and shortness of breath that has continued to worsen along with the weight gain. She has been on Lasix and hydrochlorothiazide but she states she goes more than 8 hours without voiding at all. She is able to walk only 3 steps. She has had no recent falls at home. Patient was just discharged one week ago with similar presentation of shortness of breath and lower extremity swelling. According to the patient there was no improvement in the lower extremity swelling with oral medications to IV Lasix does work. On Previous visit d-dimer was elevated and the patient underwent CT of the chest which was negative for pulmonary embolism. Patient underwent echocardiogram of heart which suggested EF 60-65% with moderate concentric ventricular hypertrophy patient was treated with acute diastolic heart failure. Actos was discontinued due to concern of CHF exacerbation. Patient was seen bedside with no significant improvement in the lower extremity swelling, found to be coughing with shortness of breath. BNP elevated to use 1750. Saturating well on room air Chest x-ray showed subsegmental atelectasis. Moderate cardiomegaly. No heart failure. No pulmonary consolidation. No change. Patient is started on Rocephin 1 g, continue nebs, Solu-Medrol, Lasix 40 IV every 8. With metolazone. Cardiology and pulmonary consult placed Review of Systems Constitutional: Denies chills, Denies fever, Denies lethargy, Denies malaise, Denies poor appetite, Denies weakness, Denies weight loss Eyes: denies decreased vision, denies diplopia, denies discharge, denies pain Ears: deny: decreased hearing Ears, nose, mouth and throat: Denies dental pain, Denies headache, Denies nasal discharge, Denies nose pain Cardiovascular: Denies chest pain, endorses decreased exercise tolerance, endorses edema, Denies high blood pressure, Denies irregular heart beat, Denies palpitations, endorses paroxysmal nocturnal dyspnea, Denies rapid heart beat, endorses shortness of breath Respiratory: Denies congestion, endorses cough, Denies cough with sputum, endorses dyspnea, Denies home oxygen, endorses wheezing Gastrointestinal: Denies abdominal pain, Denies change in bowel habits, Denies coffee ground emesis, Denies early satiety, Denies excessive gas, Denies heartburn, Denies hematemesis, Denies hematochezia, Denies loss of appetite, Denies nausea, Denies vomiting Genitourinary: Denies dysuria, Denies flank pain, Denies kidney stones, Denies menorrhagia, Denies urgency, Denies urinary frequency Musculoskeletal: Denies gait dysfunction, Denies limitation of motion, Denies morning stiffness, Denies muscle cramps Integumentary: Denies rash, Denies wounds, Denies brittle nails, Denies change in hair/nails, Denies darkening of skin Neurological: Denies balance difficulties, Denies change in speech, Denies double vision, Denies gait dysfunction, Denies loss of vision, Denies motor disturbance, Denies numbness, Denies paralysis, Denies paresthesias, Denies seizures Psychiatric: Denies anxiety, Denies depression Endocrine: Denies excessive sweating, Denies excessive thirst, Denies high blood sugars, Denies palpitations Hematologic/Lymphatic: Denies easy bruising, Denies lymphadenopathy Past Medical History Past Medical History: Heart Failure, Diabetes Mellitus, Hyperlipidemia, Hypertension, Pneumonia, Thyroid Disorder History of Any Multi-Drug Resistant Organisms: None Reported Past Surgical History: No Surgical Hx Reported Additional Past Surgical History / Comment(s): right knee repair Past Anesthesia/Blood Transfusion Reactions: No Reported Reaction Past Psychological History: No Psychological Hx Reported Smoking Status: Never smoker Past Alcohol Use History: Rare Past Drug Use History: None Reported - Past Family History Mother Family Medical History: Cancer Additional Family Medical History / Comment(s): ovarian cancer Father Family Medical History: Coronary Artery Disease (CAD) Additional Family Medical History / Comment(s): 2 open heart surgeries Brother(s) Family Medical History: No Reported History Sister(s) Family Medical History: No Reported History Son(s) Family Medical History: No Reported History Medications and Allergies Home Medications Medication Instructions Recorded Confirmed Type Atorvastatin [Lipitor] 20 mg PO DAILY 05/05/18 05/16/18 History Gabapentin [Neurontin] 100 mg PO TID 05/05/18 05/16/18 History Gemfibrozil [Lopid] 600 mg PO AC-BID 05/05/18 05/16/18 History Insulin Aspart [NovoLOG 12 unit SQ AC-TID 05/05/18 05/16/18 History (formulary)] Levothyroxine Sodium [Synthroid] 150 mcg PO DAILY 05/05/18 05/16/18 History Metoprolol Succinate (ER) [Toprol 50 mg PO DAILY 05/05/18 05/16/18 History XL] Famotidine [Pepcid] 20 mg PO DAILY #60 tab 05/10/18 05/16/18 Rx Furosemide [Lasix] 40 mg PO BID #60 tablet 05/10/18 05/16/18 Rx Benzonatate [Tessalon Perles] 100 mg PO TID 05/16/18 05/16/18 History Insulin Glargine [Lantus] 40 units SQ BID 05/16/18 05/16/18 History Spironolactone [Aldactone] 25 mg PO HS 05/16/18 05/16/18 History Allergies Allergy/AdvReac Type Severity Reaction Status Date / Time barium sulfate Allergy Unknown Verified 05/16/18 21:38 iodine Allergy Unknown Verified 05/16/18 21:38 Physical Exam Vitals: Vital Signs Temp Pulse Pulse Resp BP BP Pulse Ox 05/17/18 12:00 84 77 14 05/17/18 11:49 84 05/17/18 11:36 98.1 F 77 14 114/79 93 L 05/17/18 08:29 88 05/17/18 08:19 88 05/17/18 08:00 85 14 05/17/18 07:51 97.5 F L 85 14 130/79 92 L 05/17/18 03:18 20 05/17/18 03:17 97.6 F 93 20 142/86 92 L 05/16/18 22:03 20 05/16/18 22:02 98.3 F 83 20 130/83 93 L 05/16/18 19:50 88 05/16/18 19:26 84 05/16/18 18:47 98.8 F 83 18 127/81 91 L Intake and Output 05/17/18 05/17/18 05/17/18 06:59 14:59 22:59 Intake Total 621 Output Total 0 1999 Balance -1578 Intake: Oral 621 Output: Urine 2199 1999 Other: Voiding Method Toilet Toilet Weight 131 kg 131 kg - Constitutional General appearance: cooperative, no acute distress, obese - EENT Eyes: anicteric sclerae, PERRLA, normal appearance ENT: hearing grossly normal - Neck Neck: no lymphadenopathy, normal ROM, no other, no rigidity, no stridor, no thyromegaly - Respiratory Respiratory: bilateral: Diminished air entry with significant decreased air entry bilaterally no wheezing heard, no crackles or Rales heard - Cardiovascular Rhythm: regular Heart sounds: normal: S1, S2 Abnormal Heart Sounds: no systolic murmur, no diastolic murmur, no rub, no S3 Gallop, no S4 Gallop, no click, 2+ lower extremity edema pitting - Gastrointestinal General gastrointestinal: normal bowel sounds, soft - Integumentary Integumentary: no rash - Neurologic Neurologic: CNII-XII intact - Musculoskeletal Musculoskeletal: gait normal, strength equal bilaterally - Psychiatric Psychiatric: A&O x's 3, appropriate affect Results CBC & Chem 7: 05/16/18 19:42 05/16/18 19:42 Labs: Abnormal Lab Results - Last 24 Hours (Table) 05/16/18 05/16/18 05/16/18 Range/Units 19:42 19:42 19:42 WBC 11.0 H (3.8-10.6) k/uL RDW 15.7 H (11.5-15.5) % D-Dimer (<0.60) mg/L FEU Chloride 94 L (98-107) mmol/L Carbon Dioxide 34 H (22-30) mmol/L BUN 21 H (7-17) mg/dL Glucose 122 H (74-99) mg/dL POC Glucose (mg/dL) (75-99) mg/dL AST 44 H (14-36) U/L CK-MB (CK-2) 3.2 H* (0.0-2.4) ng/mL Troponin I (0.000-0.034) ng/mL Total Protein 6.2 L (6.3-8.2) g/dL 05/16/18 05/16/18 05/17/18 Range/Units 19:42 22:25 06:44 WBC (3.8-10.6) k/uL RDW (11.5-15.5) % D-Dimer 0.74 H (<0.60) mg/L FEU Chloride (98-107) mmol/L Carbon Dioxide (22-30) mmol/L BUN (7-17) mg/dL Glucose (74-99) mg/dL POC Glucose (mg/dL) 134 H (75-99) mg/dL AST (14-36) U/L CK-MB (CK-2) (0.0-2.4) ng/mL Troponin I 0.037 H* (0.000-0.034) ng/mL Total Protein (6.3-8.2) g/dL 05/17/18 05/17/18 05/17/18 Range/Units 07:32 11:57 12:16 WBC (3.8-10.6) k/uL RDW (11.5-15.5) % D-Dimer (<0.60) mg/L FEU Chloride (98-107) mmol/L Carbon Dioxide (22-30) mmol/L BUN (7-17) mg/dL Glucose (74-99) mg/dL POC Glucose (mg/dL) 72 L 65 L 62 L (75-99) mg/dL AST (14-36) U/L CK-MB (CK-2) (0.0-2.4) ng/mL Troponin I (0.000-0.034) ng/mL Total Protein (6.3-8.2) g/dL 05/17/18 Range/Units 12:44 WBC (3.8-10.6) k/uL RDW (11.5-15.5) % D-Dimer (<0.60) mg/L FEU Chloride (98-107) mmol/L Carbon Dioxide (22-30) mmol/L BUN (7-17) mg/dL Glucose (74-99) mg/dL POC Glucose (mg/dL) 104 H (75-99) mg/dL AST (14-36) U/L CK-MB (CK-2) (0.0-2.4) ng/mL Troponin I (0.000-0.034) ng/mL Total Protein (6.3-8.2) g/dL Thrombosis Risk Factor Assmnt - DVT/VTE Prophylaxis DVT/VTE Prophylaxis: Pharmacologic Prophylaxis ordered - Choose All That Apply Any of the Below Risk Factors Present?: Yes Each Factor Represents 1 point: Heart failure (<1month), Obesity (BMI >25), Swollen legs (current) Other Risk Factors: No Other congenital or acquired thrombophilia - If yes, enter type in comment: No Thrombosis Risk Factor Assessment Total Risk Factor Score: 3 Thrombosis Risk Factor Assessment Level: Moderate Risk Assessment and Plan Plan: 1. Acute hypoxic and hypercapnic respiratory failure secondary to acute on chronic diastolic heart failure, possible bronchitis, ILD . Patient's been started on Lasix 40 mg IV every 8 hours, ceftriaxone, DuoNeb treatments 4 times daily and as needed, IV Solu-Medrol at 60 mg IV every 6 hours. Daily weights and I&O's. Echocardiogram with moderate hypertrophy concerning for acute on chronic diastolic heart failure . Pulmonary consult with Dr. Fournier and cardiology consult. Actos has been discontinued in the last visit itself. 2. Diabetes mellitus type 2. Hypoglycemia during admission. Continue Levemir 10 twice a day with sliding scale hold insulin with meal while on steroids twice daily, 3. Diabetic neuropathy. Continue gabapentin 100 mg 3 times daily. 4. Hypothyroidism. Continue levothyroxine 150 mg daily. 5. Hyperlipidemia. Continue atorvastatin 20 mg daily and Lopid 600 mg twice daily. 6. Hypertension. Continue metoprolol succinate 50 mg daily, hydrochlorothiazide 12.5 mg daily. 7. GI prophylaxis. Pepcid. 8. DVT prophylaxis. Heparin subcu. Patient will be admitted to the hospital for a minimum of 2 night stay. Discharge plan: home with home care
[2018-05-17 17:11] LABS: Glucose,Whole Blood 143 mg/dL (75-99)
[2018-05-17] MEDS: cefTRIAXone IN SWFI 1,000 MG/10 ML SYRINGE IVP SCH (17:41)
[2018-05-17] MEDS: methylPREDNISolone SOD SUCCI 125 MG/2 ML VIAL IV SCH (17:41)
[2018-05-17] MEDS: METOLAZONE 2.5 MG TAB PO SCH (17:42)
[2018-05-17 20:05] LABS: Glucose,Whole Blood 241 mg/dL (75-99)
--- NOTE | 2018-05-17 20:30 | CONS ---
CONSULTATION Mrs. Braswell is a 63-year-old female who is seen for cardiac evaluation and abnormal troponin. This patient's medical records were reviewed. The patient came to the hospital with increasing shortness of breath, cough with expectoration and bilateral edema. Patient did not complain of any significant chest discomfort. This patient has a known history of chronic obstructive pulmonary disease. Her physical activities are limited. The patient recently was started on Actos and the patient had gained significant amount of weight. The patient was treated in the hospital about a couple of weeks ago and Actos was discontinued. At that time, patient underwent a CT of the chest which was negative for pulmonary embolism and the echocardiogram revealed the ejection fraction of 60%-65%. The patient since admission is feeling better. Her breathing is improved and she has been responding to the IV Lasix. There is history of myocardial infarction. Patient does have a history of diabetes. PAST MEDICAL HISTORY: Includes history of diastolic heart failure, diabetes, hyperlipidemia, hypertension, history of COPD and pneumonia. No major surgeries are reported. HOME MEDICATIONS: Include: 1. Neurontin 100 mg t.i.d. 2. Insulin. 3. Metoprolol 50 mg daily. 4. Lasix 40 mg IV daily. 5. Tessalon Perles. 6. Lantus and. 7. Aldactone 25 mg daily. PHYSICAL EXAMINATION: At present reveals a 63-year-old obesely-built female who does not appear to be in any acute distress. Patient is afebrile. Heart rate is 80 per minute. The blood pressure is 114/79 mmHg. Oxygen saturation is 93%. HEENT is negative. Neck is supple. No significant increase in jugular venous pressure is noted. HEART: First and second heart sounds are normal. No significant murmurs are noted. Lungs reveal bilateral diminished air entry. Abdomen is negative. EXTREMITIES: There is 2+ pedal edema. The patient's electrolytes are normal. Creatinine is 0.72. Three sets of troponin are 0.32, 0.34 and 0.37, which are not diagnostic of acute coronary syndrome. FINAL IMPRESSION: 1. This patient is admitted with acute on chronic respiratory distress which appears to be most likely secondary to underlying acute respiratory failure and COPD. There is a mild elevation in the proBNP level noted which is suggestive for chronic diastolic heart failure. 2. The patient's troponins are borderline elevated without any symptoms of cardiac ischemia or EKG changes and not diagnostic of acute coronary syndrome. I would recommend to continue the patient on the IV Lasix and increase the Aldactone to 25 mg b.i.d. Neurontin can also because for leg edema and that can be discontinued. In view of her history of diabetes we will increase the dose of Lipitor to 40 mg daily. Thank you very much for letting me participate in the care of this nice lady. MMODL / IJN: [id number] /
[2018-05-17] MEDS: SPIRONOLACTONE 25 MG TAB PO SCH (21:24)
[2018-05-18] MEDS: methylPREDNISolone SOD SUCCI 125 MG/2 ML VIAL IV SCH ×3 (00:22→13:06)
[2018-05-18] MEDS: FUROSEMIDE 10 MG/ML 4 ML VIAL IV SCH ×3 (04:56→20:10)
[2018-05-18] MEDS: LEVOTHYROXINE 75 MCG TAB PO SCH (04:57)
[2018-05-18 07:09] LABS: Glucose,Whole Blood 221 mg/dL (75-99)
[2018-05-18 07:18] LABS: Basophils % (A) 0 %; Eosinophils % (A) 0 %; HGB 14.7 gm/dL (11.4-16.0); Hypochromasia Slight; Lymphocytes # (A) 0.9 k/uL (1.0-4.8); Lymphocytes % (A) 7 %; MCH 28.1 pg (25.0-35.0); MCHC 31.3 g/dL (31.0-37.0); MCV 89.9 fL (80.0-100.0); Monocytes # (A) 0.3 k/uL (0-1.0); Monocytes % (A) 2 %; Neutrophils # (A) 12.2 k/uL (1.3-7.7); Neutrophils % (A) 91 %; Platelet Count 332 k/uL (150-450); RBC 5.23 m/uL (3.80-5.40); RDW 15.8 % (11.5-15.5); WBC 13.5 k/uL (3.8-10.6)
[2018-05-18 07:32] LABS: ALT 36 U/L (9-52); AST 35 U/L (14-36); Albumin 4.4 g/dL (3.5-5.0); Alkaline Phosphatase 77 U/L (38-126); Anion Gap 11 mmol/L; Blood Urea Nitrogen 21 mg/dL (7-17); Calcium 9.8 mg/dL (8.4-10.2); Carbon Dioxide 38 mmol/L (22-30); Chloride 89 mmol/L (98-107); Glucose 241 mg/dL (74-99); Potassium 4.5 mmol/L (3.5-5.1); Sodium 138 mmol/L (137-145); Total Bilirubin 0.5 mg/dL (0.2-1.3); Total Protein 7.2 g/dL (6.3-8.2)
[2018-05-18] MEDS: IPRATROPIUM-ALBUTEROL 3 ML NEB INHALATION SCH ×3 (08:08→19:52)
[2018-05-18] MEDS: INSULIN ASPART 100 UNIT/ML 1 ML 10 ML VIAL SQ SCH ×5 (09:20→20:09)
[2018-05-18] MEDS: ATORVASTATIN 40 MG TAB PO SCH (09:20)
[2018-05-18] MEDS: ENOXAPARIN 40 MG/0.4 ML SYRINGE SQ SCH (09:20)
[2018-05-18] MEDS: SPIRONOLACTONE 25 MG TAB PO SCH ×2 (09:20→20:09)
[2018-05-18] MEDS: BENZONATATE 100 MG CAP PO SCH ×3 (09:20→21:42)
[2018-05-18] MEDS: cefTRIAXone IN SWFI 1,000 MG/10 ML SYRINGE IVP SCH (09:20)
[2018-05-18] MEDS: METOPROLOL SUCCINATE (ER) 50 MG TAB.ER.24H PO SCH (09:21)
[2018-05-18] MEDS: METOLAZONE 2.5 MG TAB PO SCH (09:21)
[2018-05-18] MEDS: FAMOTIDINE 20 MG TAB PO SCH (09:21)
[2018-05-18] MEDS: ASPIRIN 81 MG PO SCH (09:21)
[2018-05-18] MEDS: INSULIN DETEMIR 100 UNIT/ML 10 ML VIAL SQ SCH ×2 (11:29→20:10)
[2018-05-18 11:54] LABS: Glucose,Whole Blood 339 mg/dL (75-99)
--- NOTE | 2018-05-18 16:44 | P.PN ---
Subjective Progress Note Date: 05/18/18 This is a 63-year-old female patient of Dr. Herndon with past medical history of diabetes mellitus type 2, insulin requiring, hypothyroidism, hypertension, hyperlipidemia. Patient also gives history of recent treatment for pneumonia over 2 months but not needing hospitalization. She recently saw Dr. Harrell agriculture engineer who placed her onactos and she states that since then over the past 3 months she has gained 80 pounds. She was sent to manager of school, Dr. Daniel and is scheduled for stress testing on Saturday. She is unclear if she had any other testing done in the office. She is also been sent to Dr. Fournier and is scheduled for coronary function testing. She complains of her legs hurting and shortness of breath that has continued to worsen along with the weight gain. She has been on Lasix and hydrochlorothiazide but she states she goes more than 8 hours without voiding at all. She is able to walk only 3 steps. She has had no recent falls at home. Patient was just discharged one week ago with similar presentation of shortness of breath and lower extremity swelling. According to the patient there was no improvement in the lower extremity swelling with oral medications to IV Lasix does work. On Previous visit d-dimer was elevated and the patient underwent CT of the chest which was negative for pulmonary embolism. Patient underwent echocardiogram of heart which suggested EF 60-65% with moderate concentric ventricular hypertrophy patient was treated with acute diastolic heart failure. Actos was discontinued due to concern of CHF exacerbation. Patient was seen bedside with no significant improvement in the lower extremity swelling, found to be coughing with shortness of breath. BNP elevated to use 1750. Saturating well on room air Chest x-ray showed subsegmental atelectasis. Moderate cardiomegaly. No heart failure. No pulmonary consolidation. No change. Patient is started on Rocephin 1 g, continue nebs, Solu-Medrol, Lasix 40 IV every 8. With metolazone. Cardiology and pulmonary consult placed 05/18 patient examined that size. Continues to have dry cough. Lower extremity swelling is improved. Patient was seen by cardiology who does not think patient has acute diastolic heart failure though BNP was elevated. Pending pulmonary evaluation. Lungs are very tight and wheezy continue Solu-Medrol IV every 6 hours for dual nebs as needed patient may need a high-resolution computed tomography scan. Lantus increased to 30 twice a daywith lispro as needed. Objective - Vital Signs Vital signs: Vital Signs Temp 98.3 F 05/18/18 15:38 Pulse 88 05/18/18 16:01 Resp 16 05/18/18 16:00 BP 143/83 05/18/18 15:38 Pulse Ox 90 L 05/18/18 15:38 Intake & Output 05/17/18 05/18/18 05/18/18 18:59 06:59 18:59 Intake Total 540 476 Output Total 3000 5600 3600 Balance -1560 -7460 -5508 Weight 131 kg 131 kg 125.9 kg Intake: Oral 540 476 Output: Urine 3000 5600 3600 Other: Voiding Method Toilet Toilet Toilet # Voids 0 - Exam - Constitutional General appearance: cooperative, no acute distress, obese - EENT Eyes: anicteric sclerae, PERRLA, normal appearance ENT: hearing grossly normal - Neck Neck: no lymphadenopathy, normal ROM, no other, no rigidity, no stridor, no thyromegaly - Respiratory Respiratory: bilateraldecreased air entry with wheezing bilaterally this to her lungs - Cardiovascular Rhythm: regular Heart sounds: normal: S1, S2 Abnormal Heart Sounds: no systolic murmur, no diastolic murmur, no rub, no S3 Gallop, no S4 Gallop, no click, no other - Gastrointestinal General gastrointestinal: normal bowel sounds, soft - Integumentary Integumentary: no rash - Neurologic Neurologic: CNII-XII intact - Musculoskeletal Musculoskeletal: gait normal, strength equal bilaterally - Psychiatric Psychiatric: A&O x's 3, appropriate affect - Labs CBC & Chem 7: 05/18/18 06:23 05/18/18 06:23 Labs: Abnormal Lab Results - Last 24 Hours (Table) 05/17/18 05/17/18 05/17/18 Range/Units 02:39 17:09 20:02 WBC (3.8-10.6) k/uL Hct (34.0-46.0) % RDW (11.5-15.5) % Neutrophils # (1.3-7.7) k/uL Lymphocytes # (1.0-4.8) k/uL Chloride (98-107) mmol/L Carbon Dioxide (22-30) mmol/L BUN (7-17) mg/dL Glucose (74-99) mg/dL POC Glucose (mg/dL) 143 H 241 H (75-99) mg/dL Hemoglobin A1c 8.0 H (4.0-6.0) % 05/18/18 05/18/18 05/18/18 Range/Units 06:23 06:23 07:06 WBC 13.5 H (3.8-10.6) k/uL Hct 47.0 H (34.0-46.0) % RDW 15.8 H (11.5-15.5) % Neutrophils # 12.2 H (1.3-7.7) k/uL Lymphocytes # 0.9 L (1.0-4.8) k/uL Chloride 89 L (98-107) mmol/L Carbon Dioxide 38 H (22-30) mmol/L BUN 21 H (7-17) mg/dL Glucose 241 H (74-99) mg/dL POC Glucose (mg/dL) 221 H (75-99) mg/dL Hemoglobin A1c (4.0-6.0) % 05/18/18 Range/Units 11:53 WBC (3.8-10.6) k/uL Hct (34.0-46.0) % RDW (11.5-15.5) % Neutrophils # (1.3-7.7) k/uL Lymphocytes # (1.0-4.8) k/uL Chloride (98-107) mmol/L Carbon Dioxide (22-30) mmol/L BUN (7-17) mg/dL Glucose (74-99) mg/dL POC Glucose (mg/dL) 339 H (75-99) mg/dL Hemoglobin A1c (4.0-6.0) % Microbiology - Last 24 Hours (Table) 05/16/18 19:42 Blood Culture - Preliminary Blood No Growth after 24 hours Assessment and Plan Plan: 1. Acute hypoxic and hypercapnic respiratory failure secondary to acute on chronic diastolic heart failure, possible bronchitis, ILD . Patient's been started on Lasix 40 mg IV every 8 hours, ceftriaxone, DuoNeb treatments 4 times daily and as needed, Daily weights and I&O's. Echocardiogram with moderate hypertrophy concerning for acute on chronic diastolic heart failure . Pulmonary consult with Dr. Fournier and cardiology consult. Actos has been discontinued in the last visit itself.continue Solu-Medrol at 30 mg IV every 6 hours 2. Diabetes mellitus type 2. Hypoglycemia during admission. Levemir increased to 30 twice a day with with sliding scale hold insulin with meal while on steroids twice daily, 3. Diabetic neuropathy. Continue gabapentin 100 mg 3 times daily. 4. Hypothyroidism. Continue levothyroxine 150 mg daily. 5. Hyperlipidemia. Continue atorvastatin 20 mg daily and Lopid 600 mg twice daily. 6. Hypertension. Continue metoprolol succinate 50 mg daily, hydrochlorothiazide 12.5 mg daily. 7. GI prophylaxis. Pepcid. 8. DVT prophylaxis. Heparin subcu. Patient will be admitted to the hospital for a minimum of 2 night stay. Discharge plan: home with home care
[2018-05-18 17:04] LABS: Glucose,Whole Blood 336 mg/dL (75-99)
[2018-05-18 17:15] LABS: ABG Base Excess 13.9 mmol/L; ABG HCO3 38 mmol/L (21-25); ABG Oxygen Saturation 87.9 % (94-97); ABG PCO2 53 mmHg (35-45); ABG PH 7.46 (7.35-7.45); ABG PO2 53 mmHg (83-108); ABG TCO2 39 mmol/L (19-24)
[2018-05-18] MEDS: methylPREDNISolone SOD SUCCI 40 MG/ML 1 ML VIAL IV SCH ×2 (17:38→23:57)
[2018-05-18] MEDS: BUDESONIDE 0.5 MG/2 ML NEBU INHALATION SCH (19:52)
[2018-05-18 20:08] LABS: Glucose,Whole Blood 324 mg/dL (75-99)
[2018-05-18] MEDS: MONTELUKAST 10 MG TAB PO SCH (20:09)
--- NOTE | 2018-05-18 21:28 | CONS ---
CONSULTATION Geetha Braswell is a 63-year-old female with a history of increasing shortness of breath of about 3-4 days duration. This has been associated with a significant amount of weight gain and edema to her lower extremities. She subsequently was seen in the ED and admitted for further evaluation. She has a history of a cough and some wheezing and recently had been admitted to the hospital. She had a recent echo done which showed evidence of mild to moderate elevation in her pulmonary artery systolic pressures consistent with pulmonary hypertension. She denies any fever, chills or rigors. She was seen in the ED and admitted for further evaluation and management. PAST MEDICAL HISTORY: Positive for obesity, history of loud snoring with episodes where she wakes up short of breath consistent with obstructive sleep apnea. History of diabetes mellitus type 2. Hypertension, pneumonia, thyroid disorder, right knee repair. FAMILY HISTORY: Positive for coronary artery disease in her father, who is status post coronary artery bypass. Mother had a history of ovarian cancer SOCIAL HISTORY: Patient is a never smoker. Does not drink alcohol excessively. MEDICATIONS: Prior to admission were spironolactone, Toprol-XL, Synthroid, Lantus insulin, NovoLog, Lopid, Neurontin, Lasix, Pepcid, Tessalon Perles and Lipitor. REVIEW OF SYSTEMS: Noncontributory. PHYSICAL EXAMINATION: Blood pressure is 121/73, respiratory rate is 16, pulse rate 84, temperature 98.5, O2 saturation on 2 L by nasal cannula is 92%. HEENT reveals pupils are equal. She has Mallampati 4 with redundant tissue in the posterior pharynx. Chest reveals decreased breath sounds with prolonged expiration. No clear wheeze today. Cardiovascular system is S1, S2. ABDOMEN: Soft. There is 2+ pedal edema. Her white count is 13.5, hemoglobin of 14.7, sodium 138, potassium 4.5, chloride 89, bicarb 38, BUN 21, creatinine of 0.79. Troponin 0.0377. NT proBNP 1750. Chest x-ray shows cardiomegaly with some atelectatic changes. IMPRESSION: At this time: 1. Acute on chronic respiratory failure secondary to asthma with acute exacerbation. Doubt significant chronic obstructive pulmonary disease. 2. Possible early pneumonia or secondary bacterial infection. 3. Cor pulmonale in part due to obstructive sleep apnea clinically that has not been treated. 4. Possible obesity hypoventilation syndrome. 5. Diabetes mellitus type 2. At this point in time, decrease the IV steroids. Keep her on GI and DVT prophylaxis. Add aerosolized steroids and montelukast in the hope of decreasing her need for steroids. Keep her in negative fluid balance. I do not believe that the primary reason for fluid retention is her medications. It is most likely secondary to untreated WALDO and possible obesity hypoventilation. We will check an ABG to see if she is a candidate for a home BiPAP at this time. She will need outpatient workup as well. She was counseled regarding this condition and this approach. We should follow closely during the hospital stay. BLAIR / MARLENAN: [id number] /
[2018-05-19] MEDS: IPRATROPIUM-ALBUTEROL 3 ML NEB INHALATION SCH ×5 (01:26→19:31)
[2018-05-19] MEDS: LEVOTHYROXINE 75 MCG TAB PO SCH (04:45)
[2018-05-19] MEDS: methylPREDNISolone SOD SUCCI 40 MG/ML 1 ML VIAL IV SCH (04:45)
[2018-05-19] MEDS: FUROSEMIDE 10 MG/ML 4 ML VIAL IV SCH ×3 (04:45→21:32)
[2018-05-19 07:02] LABS: Glucose,Whole Blood 312 mg/dL (75-99)
[2018-05-19] MEDS: BUDESONIDE 0.5 MG/2 ML NEBU INHALATION SCH ×2 (07:20→19:31)
[2018-05-19 07:31] LABS: Basophils % (A) 0 %; Eosinophils % (A) 0 %; HCT 46.1 % (34.0-46.0); HGB 14.5 gm/dL (11.4-16.0); Lymphocytes # (A) 0.9 k/uL (1.0-4.8); Lymphocytes % (A) 5 %; MCH 27.7 pg (25.0-35.0); MCHC 31.3 g/dL (31.0-37.0); MCV 88.5 fL (80.0-100.0); Mean Platelet Volume 7.2; Monocytes # (A) 0.5 k/uL (0-1.0); Monocytes % (A) 3 %; Neutrophils # (A) 17.3 k/uL (1.3-7.7); Neutrophils % (A) 92 %; Platelet Count 309 k/uL (150-450); RBC 5.21 m/uL (3.80-5.40); RDW 15.5 % (11.5-15.5); WBC 18.7 k/uL (3.8-10.6)
[2018-05-19 07:45] LABS: Albumin 4.4 g/dL (3.5-5.0); Calcium 10.3 mg/dL (8.4-10.2); Potassium 4.7 mmol/L (3.5-5.1); Total Bilirubin 0.5 mg/dL (0.2-1.3); Total Protein 7.1 g/dL (6.3-8.2)
[2018-05-19] MEDS: SPIRONOLACTONE 25 MG TAB PO SCH ×2 (08:31→21:33)
[2018-05-19] MEDS: cefTRIAXone IN SWFI 1,000 MG/10 ML SYRINGE IVP SCH (08:31)
[2018-05-19] MEDS: INSULIN DETEMIR 100 UNIT/ML 10 ML VIAL SQ SCH ×2 (08:31→21:32)
[2018-05-19] MEDS: ATORVASTATIN 40 MG TAB PO SCH (08:32)
[2018-05-19] MEDS: METOLAZONE 2.5 MG TAB PO SCH (08:32)
[2018-05-19] MEDS: FAMOTIDINE 20 MG TAB PO SCH (08:32)
[2018-05-19] MEDS: BENZONATATE 100 MG CAP PO SCH ×3 (08:32→21:32)
[2018-05-19] MEDS: INSULIN ASPART 100 UNIT/ML 1 ML 10 ML VIAL SQ SCH ×7 (08:32→21:43)
[2018-05-19] MEDS: ASPIRIN 81 MG PO SCH (08:32)
[2018-05-19] MEDS: METOPROLOL SUCCINATE (ER) 50 MG TAB.ER.24H PO SCH (08:32)
[2018-05-19] MEDS: predniSONE 20 MG TAB PO SCH (10:38)
[2018-05-19] MEDS ORDERED: acetaZOLAMIDE 250 MG TAB PO STA (12:02)
--- NOTE | 2018-05-19 12:04 | P.PN ---
Subjective Progress Note Date: 05/19/18 Interval history: 05/19/2018patient is being seen examined and evaluated today on rounds. She is feeling slightly better today. She states the swelling in her bilateral lower show any is going down. She continues to have a cough with some wheezing. However is improving. She has been switched to oral steroids. She will need a home oxygen assessment Objective - Vital Signs Vital signs: Vital Signs Temp 97.4 F L 05/19/18 08:00 Pulse 81 05/19/18 11:23 Resp 16 05/19/18 11:10 BP 146/89 05/19/18 08:00 Pulse Ox 90 L 05/19/18 08:00 Intake & Output 05/18/18 05/19/18 05/19/18 18:59 06:59 18:59 Intake Total 834 220 Output Total 3900 3550 Balance -3066 -3330 Weight 125.9 kg Intake: Oral 834 220 Output: Urine 3900 3550 Other: Voiding Method Toilet Toilet # Voids 0 - Exam GENERAL EXAM: Alert, active, comfortable in no apparent distress. HEAD: Normocephalic. EYES: Normal reaction of pupils, equal size. NOSE: Clear with pink turbinates. THROAT: No erythema or exudates. NECK: No masses, no JVD. CHEST: No chest wall deformity. LUNGS: Decreased breath sounds with prolonged expiration and expiratory wheeze, improving CVS: S1 and S2 normal with no audible mumurs, regular rhythm. ABDOMEN: No hepatosplenomegaly, normal bowel sounds, no guarding or rigidity. EXTREMITIES: +1-2 edema noted, pedal pulses palpable. CENTRAL NERVOUS SYSTEM: No focal deficits, tone is normal in all 4 extremities. - Labs CBC & Chem 7: 05/19/18 07:00 05/19/18 07:00 Labs: Abnormal Lab Results - Last 24 Hours (Table) 05/18/18 05/18/18 05/18/18 Range/Units 11:53 17:01 17:09 WBC (3.8-10.6) k/uL Hct (34.0-46.0) % Neutrophils # (1.3-7.7) k/uL Lymphocytes # (1.0-4.8) k/uL ABG pH 7.46 H (7.35-7.45) ABG pCO2 53 H (35-45) mmHg ABG pO2 53 L (83-108) mmHg ABG HCO3 38 H (21-25) mmol/L ABG Total CO2 39 H (19-24) mmol/L ABG O2 Saturation 87.9 L (94-97) % Sodium (137-145) mmol/L Chloride (98-107) mmol/L Carbon Dioxide (22-30) mmol/L BUN (7-17) mg/dL Glucose (74-99) mg/dL POC Glucose (mg/dL) 339 H 336 H (75-99) mg/dL Calcium (8.4-10.2) mg/dL AST (14-36) U/L 05/18/18 05/19/18 05/19/18 Range/Units 20:06 06:53 07:00 WBC 18.7 H (3.8-10.6) k/uL Hct 46.1 H (34.0-46.0) % Neutrophils # 17.3 H (1.3-7.7) k/uL Lymphocytes # 0.9 L (1.0-4.8) k/uL ABG pH (7.35-7.45) ABG pCO2 (35-45) mmHg ABG pO2 (83-108) mmHg ABG HCO3 (21-25) mmol/L ABG Total CO2 (19-24) mmol/L ABG O2 Saturation (94-97) % Sodium (137-145) mmol/L Chloride (98-107) mmol/L Carbon Dioxide (22-30) mmol/L BUN (7-17) mg/dL Glucose (74-99) mg/dL POC Glucose (mg/dL) 324 H 312 H (75-99) mg/dL Calcium (8.4-10.2) mg/dL AST (14-36) U/L 05/19/18 Range/Units 07:00 WBC (3.8-10.6) k/uL Hct (34.0-46.0) % Neutrophils # (1.3-7.7) k/uL Lymphocytes # (1.0-4.8) k/uL ABG pH (7.35-7.45) ABG pCO2 (35-45) mmHg ABG pO2 (83-108) mmHg ABG HCO3 (21-25) mmol/L ABG Total CO2 (19-24) mmol/L ABG O2 Saturation (94-97) % Sodium 136 L (137-145) mmol/L Chloride 83 L (98-107) mmol/L Carbon Dioxide 42 H* (22-30) mmol/L BUN 36 H (7-17) mg/dL Glucose 336 H (74-99) mg/dL POC Glucose (mg/dL) (75-99) mg/dL Calcium 10.3 H (8.4-10.2) mg/dL AST 40 H (14-36) U/L Microbiology - Last 24 Hours (Table) 05/16/18 19:42 Blood Culture - Preliminary Blood No Growth after 48 hours Assessment and Plan Assessment: Assessment Acute on chronic hypoxic respiratory failure requiring supplemental oxygen Acute exacerbation of moderate to severe chronic persistent asthma Possible early pneumonia or secondary bacterial infection Cor pulmonale in part due to WALDO that is not treated Possible obesity hypoventilation syndrome Diabetes mellitus type 2 Acute on chronic diastolic heart failure Plan Medications have been reviewed and will be continued as ordered. Patient has been switched to oral steroids Diamox for 1 dose Continue with pulmonary hygiene, coughing and deep breathing exercises, and supportive care. Supplemental oxygen to maintain oxygen saturations of 92% or better. Continue nebulizer treatments. GI and DVT prophylaxis. Patient should have close pulmonary follow-up in the outpatient setting with PFT and PSG We will continue to monitor labs/results and adjust treatment as necessary. Further recommendations pending. I performed an examination of the patient and discussed their management with the nurse practitioner. I have reviewed the nurse practitioner's note and agree with the documented findings and plan of care.
[2018-05-19 12:16] LABS: Glucose,Whole Blood 310 mg/dL (75-99)
[2018-05-19] MEDS ORDERED: ACETAMINOPHEN TAB 325 MG TAB PO PRN (15:02)
[2018-05-19 17:04] LABS: Glucose,Whole Blood 322 mg/dL (75-99)
[2018-05-19 20:35] LABS: Glucose,Whole Blood 300 mg/dL (75-99)
[2018-05-19] MEDS: MONTELUKAST 10 MG TAB PO SCH (21:32)
[2018-05-20] MEDS: FUROSEMIDE 10 MG/ML 4 ML VIAL IV SCH ×2 (05:31→13:18)
[2018-05-20] MEDS: LEVOTHYROXINE 75 MCG TAB PO SCH (06:26)
[2018-05-20 07:26] LABS: Basophils % (A) 0 %; Eosinophils % (A) 0 %; HCT 46.8 % (34.0-46.0); HGB 14.6 gm/dL (11.4-16.0); Lymphocytes # (A) 2.1 k/uL (1.0-4.8); Lymphocytes % (A) 12 %; MCH 27.7 pg (25.0-35.0); MCHC 31.3 g/dL (31.0-37.0); MCV 88.4 fL (80.0-100.0); Mean Platelet Volume 7.2; Monocytes # (A) 0.8 k/uL (0-1.0); Monocytes % (A) 5 %; Neutrophils # (A) 13.7 k/uL (1.3-7.7); Neutrophils % (A) 81 %; Platelet Count 300 k/uL (150-450); RBC 5.29 m/uL (3.80-5.40); RDW 15.8 % (11.5-15.5); WBC 16.8 k/uL (3.8-10.6)
[2018-05-20 07:40] LABS: Glucose,Whole Blood 162 mg/dL (75-99)
[2018-05-20 07:49] LABS: Albumin 4.3 g/dL (3.5-5.0); Calcium 10.3 mg/dL (8.4-10.2); Total Bilirubin 0.5 mg/dL (0.2-1.3)
[2018-05-20] MEDS: IPRATROPIUM-ALBUTEROL 3 ML NEB INHALATION SCH ×2 (08:05→11:32)
[2018-05-20] MEDS: BUDESONIDE 0.5 MG/2 ML NEBU INHALATION SCH (08:05)
[2018-05-20] MEDS: SPIRONOLACTONE 25 MG TAB PO SCH (08:07)
[2018-05-20] MEDS: predniSONE 20 MG TAB PO SCH (08:07)
[2018-05-20] MEDS: ASPIRIN 81 MG PO SCH (08:07)
[2018-05-20] MEDS: ATORVASTATIN 40 MG TAB PO SCH (08:08)
[2018-05-20] MEDS: METOPROLOL SUCCINATE (ER) 50 MG TAB.ER.24H PO SCH (08:08)
[2018-05-20] MEDS: INSULIN ASPART 100 UNIT/ML 1 ML 10 ML VIAL SQ SCH ×4 (08:08→13:18)
[2018-05-20] MEDS: FAMOTIDINE 20 MG TAB PO SCH (08:08)
[2018-05-20] MEDS: METOLAZONE 2.5 MG TAB PO SCH (08:08)
[2018-05-20] MEDS: BENZONATATE 100 MG CAP PO SCH (08:08)
[2018-05-20 08:27] VITALS: BP 132/83; RESP 18; TEMP 97.9
[2018-05-20] MEDS: cefTRIAXone IN SWFI 1,000 MG/10 ML SYRINGE IVP SCH (08:34)
[2018-05-20] MEDS: INSULIN DETEMIR 100 UNIT/ML 10 ML VIAL SQ SCH (10:32)
--- NOTE | 2018-05-20 11:03 | P.PN ---
Subjective Progress Note Date: 05/20/18 Interval history: 05/19/2018patient is being seen examined and evaluated today on rounds. She is feeling slightly better today. She states the swelling in her bilateral lower show any is going down. She continues to have a cough with some wheezing. However is improving. She has been switched to oral steroids. She will need a home oxygen assessment 05/20/2018patient is being seen examined and evaluated today on rounds. She is resting up in bed. She did require BiPAP overnight. She is known to have some significant obstructive sleep apnea and heavy snoring. She does have oxygen desaturations while sleeping as well pulse ox went down to 64% on 4 L nasal cannula. Patient had to be awoken and instructed to do some deep breathing exercises and the patient's pulse ox did return back to 96% on 4 L of nasal cannula. She was put on BiPAP with IPAP of 14 EPAP of 5 which should be used every night and with naps as well as as needed. Her CO2 today is noted to be 40. She did receive 1 dose of Diamox yesterday. Upon examination today she is resting up in bed on 2 L of supplemental oxygen does continue to have shortness of breath with cough and congestion. She is afebrile no further complaints Objective - Vital Signs Vital signs: Vital Signs Temp 97.9 F 05/20/18 08:26 Pulse 90 05/20/18 08:34 Resp 18 05/20/18 08:26 BP 132/83 05/20/18 08:26 Pulse Ox 95 05/20/18 08:26 Intake & Output 05/19/18 05/20/18 05/20/18 18:59 06:59 18:59 Intake Total 876 200 Balance 876 200 Weight 123.6 kg 121 kg Intake: Oral 876 200 Other: Voiding Method Toilet Toilet # Voids 2 - Exam GENERAL EXAM: Alert, active, comfortable in no apparent distress. HEAD: Normocephalic. EYES: Normal reaction of pupils, equal size. NOSE: Clear with pink turbinates. THROAT: No erythema or exudates. NECK: No masses, no JVD. CHEST: No chest wall deformity. LUNGS: Decreased breath sounds with prolonged expiration and expiratory wheeze, improving CVS: S1 and S2 normal with no audible mumurs, regular rhythm. ABDOMEN: No hepatosplenomegaly, normal bowel sounds, no guarding or rigidity. EXTREMITIES: +1-2 edema noted, pedal pulses palpable. CENTRAL NERVOUS SYSTEM: No focal deficits, tone is normal in all 4 extremities. - Labs CBC & Chem 7: 05/20/18 07:09 05/20/18 07:09 Labs: Abnormal Lab Results - Last 24 Hours (Table) 05/19/18 05/19/18 05/19/18 Range/Units 12:12 17:02 20:34 WBC (3.8-10.6) k/uL Hct (34.0-46.0) % RDW (11.5-15.5) % Neutrophils # (1.3-7.7) k/uL Chloride (98-107) mmol/L Carbon Dioxide (22-30) mmol/L BUN (7-17) mg/dL Creatinine (0.52-1.04) mg/dL Glucose (74-99) mg/dL POC Glucose (mg/dL) 310 H 322 H 300 H (75-99) mg/dL Calcium (8.4-10.2) mg/dL AST (14-36) U/L 05/20/18 05/20/18 05/20/18 Range/Units 07:09 07:09 07:38 WBC 16.8 H (3.8-10.6) k/uL Hct 46.8 H (34.0-46.0) % RDW 15.8 H (11.5-15.5) % Neutrophils # 13.7 H (1.3-7.7) k/uL Chloride 84 L (98-107) mmol/L Carbon Dioxide 40 H* (22-30) mmol/L BUN 53 H (7-17) mg/dL Creatinine 1.17 H (0.52-1.04) mg/dL Glucose 165 H (74-99) mg/dL POC Glucose (mg/dL) 162 H (75-99) mg/dL Calcium 10.3 H (8.4-10.2) mg/dL AST 42 H (14-36) U/L Microbiology - Last 24 Hours (Table) 05/16/18 19:42 Blood Culture - Preliminary Blood No Growth after 72 hours Assessment and Plan Assessment: Assessment Acute on chronic hypoxic respiratory failure requiring supplemental oxygen Acute exacerbation of moderate to severe chronic persistent asthma Possible early pneumonia or secondary bacterial infection Cor pulmonale in part due to WALDO that is not treated Possible obesity hypoventilation syndrome Diabetes mellitus type 2 Acute on chronic diastolic heart failure Plan Medications have been reviewed and will be continued as ordered. Oral steroids taper Gentle diuresis Home oxygen assessment prior to discharge BiPAP each night, with naps and when necessary IPAP of 14 and EPAP of 5 Continue with pulmonary hygiene, coughing and deep breathing exercises, and supportive care. Supplemental oxygen to maintain oxygen saturations of 92% or better. Continue nebulizer treatments. GI and DVT prophylaxis. Increase activity as tolerated Initiate and encourage incentive spirometer Patient should have close pulmonary follow-up in the outpatient setting with PFT and PSG We will continue to monitor labs/results and adjust treatment as necessary. I performed an examination of the patient and discussed their management with the nurse practitioner. I have reviewed the nurse practitioner's note and agree with the documented findings and plan of care.
[2018-05-20 11:47] LABS: Glucose,Whole Blood 97 mg/dL (75-99)
[2018-05-20 12:03] VITALS: PULSE 89
--- NOTE | 2018-05-20 14:56 | P.PN ---
Subjective Progress Note Date: 05/19/18 This is a 63-year-old female patient of Dr. Herndon with past medical history of diabetes mellitus type 2, insulin requiring, hypothyroidism, hypertension, hyperlipidemia. Patient also gives history of recent treatment for pneumonia over 2 months but not needing hospitalization. She recently saw Dr. Harrell recreational therapy aide who placed her onactos and she states that since then over the past 3 months she has gained 80 pounds. She was sent to surgical coordinator, Dr. Daniel and is scheduled for stress testing on Saturday. She is unclear if she had any other testing done in the office. She is also been sent to Dr. Fournier and is scheduled for coronary function testing. She complains of her legs hurting and shortness of breath that has continued to worsen along with the weight gain. She has been on Lasix and hydrochlorothiazide but she states she goes more than 8 hours without voiding at all. She is able to walk only 3 steps. She has had no recent falls at home. Patient was just discharged one week ago with similar presentation of shortness of breath and lower extremity swelling. According to the patient there was no improvement in the lower extremity swelling with oral medications to IV Lasix does work. On Previous visit d-dimer was elevated and the patient underwent CT of the chest which was negative for pulmonary embolism. Patient underwent echocardiogram of heart which suggested EF 60-65% with moderate concentric ventricular hypertrophy patient was treated with acute diastolic heart failure. Actos was discontinued due to concern of CHF exacerbation. Patient was seen bedside with no significant improvement in the lower extremity swelling, found to be coughing with shortness of breath. BNP elevated to use 1750. Saturating well on room air Chest x-ray showed subsegmental atelectasis. Moderate cardiomegaly. No heart failure. No pulmonary consolidation. No change. Patient is started on Rocephin 1 g, continue nebs, Solu-Medrol, Lasix 40 IV every 8. With metolazone. Cardiology and pulmonary consult placed 05/18 patient examined that size. Continues to have dry cough. Lower extremity swelling is improved. Patient was seen by cardiology who does not think patient has acute diastolic heart failure though BNP was elevated. Pending pulmonary evaluation. Lungs are very tight and wheezy continue Solu-Medrol IV every 6 hours for dual nebs as needed patient may need a high-resolution computed tomography scan. Lantus increased to 30 twice a daywith lispro as needed. 05/19: Chin has been seen and followed by Dr. MATHEUS Shaw and he would like to set the patient up with BiPAP until she is able to undergo a sleep study. Patient did drop her pulse ox at 64 with sleep and with ambulating to steps 86%. Continued on DuoNeb treatments [id number] and Pulmicort twice daily. Patient is continued on IV Lasix 40 mg every 8 hours, Aldactone which is increased from her home dose, metolazone was added. She is ordered for 1 dose of Diamox. Objective - Vital Signs Vital signs: Vital Signs Temp 97.7 F 05/19/18 12:00 Pulse 90 05/19/18 15:15 Resp 18 05/19/18 12:00 BP 151/88 05/19/18 12:00 Pulse Ox 94 L 05/19/18 15:15 Intake & Output 05/18/18 05/19/18 05/19/18 18:59 06:59 18:59 Intake Total 834 220 200 Output Total 3900 3550 Balance -3066 -3330 200 Weight 125.9 kg Intake: Oral 834 220 200 Output: Urine 3900 3550 Other: Voiding Method Toilet Toilet Toilet # Voids 0 - Exam - Constitutional General appearance: cooperative, no acute distress, obese - EENT Eyes: anicteric sclerae, PERRLA, normal appearance ENT: hearing grossly normal - Neck Neck: no lymphadenopathy, normal ROM, no other, no rigidity, no stridor, no thyromegaly - Respiratory Respiratory: bilateraldecreased air entry with wheezing bilaterally this to her lungs - Cardiovascular Rhythm: regular Heart sounds: normal: S1, S2 Abnormal Heart Sounds: no systolic murmur, no diastolic murmur, no rub, no S3 Gallop, no S4 Gallop, no click, no other - Gastrointestinal General gastrointestinal: normal bowel sounds, soft - Integumentary Integumentary: no rash - Neurologic Neurologic: CNII-XII intact - Musculoskeletal Musculoskeletal: gait normal, strength equal bilaterally - Psychiatric Psychiatric: A&O x's 3, appropriate affect - Labs CBC & Chem 7: 05/20/18 07:09 05/20/18 07:09 Labs: Abnormal Lab Results - Last 24 Hours (Table) 05/18/18 05/18/18 05/18/18 Range/Units 17:01 17:09 20:06 WBC (3.8-10.6) k/uL Hct (34.0-46.0) % Neutrophils # (1.3-7.7) k/uL Lymphocytes # (1.0-4.8) k/uL ABG pH 7.46 H (7.35-7.45) ABG pCO2 53 H (35-45) mmHg ABG pO2 53 L (83-108) mmHg ABG HCO3 38 H (21-25) mmol/L ABG Total CO2 39 H (19-24) mmol/L ABG O2 Saturation 87.9 L (94-97) % Sodium (137-145) mmol/L Chloride (98-107) mmol/L Carbon Dioxide (22-30) mmol/L BUN (7-17) mg/dL Glucose (74-99) mg/dL POC Glucose (mg/dL) 336 H 324 H (75-99) mg/dL Calcium (8.4-10.2) mg/dL AST (14-36) U/L 05/19/18 05/19/18 05/19/18 Range/Units 06:53 07:00 07:00 WBC 18.7 H (3.8-10.6) k/uL Hct 46.1 H (34.0-46.0) % Neutrophils # 17.3 H (1.3-7.7) k/uL Lymphocytes # 0.9 L (1.0-4.8) k/uL ABG pH (7.35-7.45) ABG pCO2 (35-45) mmHg ABG pO2 (83-108) mmHg ABG HCO3 (21-25) mmol/L ABG Total CO2 (19-24) mmol/L ABG O2 Saturation (94-97) % Sodium 136 L (137-145) mmol/L Chloride 83 L (98-107) mmol/L Carbon Dioxide 42 H* (22-30) mmol/L BUN 36 H (7-17) mg/dL Glucose 336 H (74-99) mg/dL POC Glucose (mg/dL) 312 H (75-99) mg/dL Calcium 10.3 H (8.4-10.2) mg/dL AST 40 H (14-36) U/L 08/06/18 Range/Units 12:12 WBC (3.8-10.6) k/uL Hct (34.0-46.0) % Neutrophils # (1.3-7.7) k/uL Lymphocytes # (1.0-4.8) k/uL ABG pH (7.35-7.45) ABG pCO2 (35-45) mmHg ABG pO2 (83-108) mmHg ABG HCO3 (21-25) mmol/L ABG Total CO2 (19-24) mmol/L ABG O2 Saturation (94-97) % Sodium (137-145) mmol/L Chloride (98-107) mmol/L Carbon Dioxide (22-30) mmol/L BUN (7-17) mg/dL Glucose (74-99) mg/dL POC Glucose (mg/dL) 310 H (75-99) mg/dL Calcium (8.4-10.2) mg/dL AST (14-36) U/L Microbiology - Last 24 Hours (Table) 05/16/18 19:42 Blood Culture - Preliminary Blood No Growth after 48 hours Assessment and Plan Plan: 1. Acute hypoxic and hypercapnic respiratory failure secondary to acute on chronic diastolic heart failure, severe copd, possible bronchitis, ILD . Patient's been started on Lasix 40 mg IV every 8 hours, ceftriaxone, DuoNeb treatments 4 times daily, Pulmicort twice daily, Diamox 1 dose, metolazone added and Aldactone increased to twice daily. Daily weights and I&O's. Echocardiogram with moderate hypertrophy concerning for acute on chronic diastolic heart failure . Pulmonary consult with Dr. Fournier and cardiology consult. Actos has been discontinued in the last visit itself.continue Solu- Medrol at 30 mg IV every 6 hours 2. Diabetes mellitus type 2. Hypoglycemia during admission. Levemir increased to 30 twice a day with with sliding scale hold insulin with meal while on steroids twice daily, 3. Severe COPD with acute on chronic hypoxic respiratory failure requiring home O2. Patient will be arrange for BiPAP at home as she is having periods of apnea during the night and pulse ox is dropping down to 64% with sleeping. Patient also has a pulse ox of 86% after taking 2 steps without oxygen during the day. 4. Diabetic neuropathy. Continue gabapentin 100 mg 3 times daily. 5. Hypothyroidism. Continue levothyroxine 150 mg daily. 6. Hyperlipidemia. Continue atorvastatin 20 mg daily and Lopid 600 mg twice daily. 7. Hypertension. Continue metoprolol succinate 50 mg daily, hydrochlorothiazide 12.5 mg daily. 8. GI prophylaxis. Pepcid. 9. DVT prophylaxis. Heparin subcu. Discharge plan: home with home care Impression and plan of care have been directed as dictated by the signing physician. Hermelinda Gunter nurse practitioner acting as scribe for signing physician.
--- NOTE | 2018-05-20 14:59 | P.DS ---
Providers Date of admission: 05/18/18 05:44 Expected date of discharge: 05/20/18 Attending physician: Mackenzie lCifford Consults: 05/16/18 22:28 Consult Physician Routine Consulting Provider: Armand Casas Consult Reason/Comments: heart failure Do you want consulting provider notified?: Yes, Notify in am 05/17/18 16:09 Consult Physician Routine Consulting Provider: Naomi Fournier Consult Reason/Comments: acute hypoxic resp failure Do you want consulting provider notified?: Yes Primary care physician: [facility] Course: This is a 63-year-old female patient of Dr. Herndon with past medical history of diabetes mellitus type 2, insulin requiring, hypothyroidism, hypertension, hyperlipidemia. Patient also gives history of recent treatment for pneumonia over 2 months but not needing hospitalization. She recently saw Dr. Harrell electrical maintenance mechanic who placed her onactos and she states that since then over the past 3 months she has gained 80 pounds. She was sent to marketing director, Dr. Daniel and is scheduled for stress testing on Saturday. She is unclear if she had any other testing done in the office. She is also been sent to Dr. Fournier and is scheduled for coronary function testing. She complains of her legs hurting and shortness of breath that has continued to worsen along with the weight gain. She has been on Lasix and hydrochlorothiazide but she states she goes more than 8 hours without voiding at all. She is able to walk only 3 steps. She has had no recent falls at home. Patient was just discharged one week ago with similar presentation of shortness of breath and lower extremity swelling. According to the patient there was no improvement in the lower extremity swelling with oral medications to IV Lasix does work. On Previous visit d-dimer was elevated and the patient underwent CT of the chest which was negative for pulmonary embolism. Patient underwent echocardiogram of heart which suggested EF 60-65% with moderate concentric ventricular hypertrophy patient was treated with acute diastolic heart failure. Actos was discontinued due to concern of CHF exacerbation. Patient was seen bedside with no significant improvement in the lower extremity swelling, found to be coughing with shortness of breath. BNP elevated to use 1750. Saturating well on room air Chest x-ray showed subsegmental atelectasis. Moderate cardiomegaly. No heart failure. No pulmonary consolidation. No change. Patient is started on Rocephin 1 g, continue nebs, Solu-Medrol, Lasix 40 IV every 8. With metolazone. Cardiology and pulmonary consult placed 05/18 patient examined that size. Continues to have dry cough. Lower extremity swelling is improved. Patient was seen by cardiology who does not think patient has acute diastolic heart failure though BNP was elevated. Pending pulmonary evaluation. Lungs are very tight and wheezy continue Solu-Medrol IV every 6 hours for dual nebs as needed patient may need a high-resolution computed tomography scan. Lantus increased to 30 twice a daywith lispro as needed. 05/19: Chin has been seen and followed by Dr. MATHEUS Shaw and he would like to set the patient up with BiPAP until she is able to undergo a sleep study. Patient did drop her pulse ox at 64 with sleep and with ambulating to steps 86%. Continued on DuoNeb treatments [id number] and Pulmicort twice daily. Patient is continued on IV Lasix 40 mg every 8 hours, Aldactone which is increased from her home dose, metolazone was added. She is ordered for 1 dose of Diamox. 05/20:Patient will be set up with BiPAP at home as she is having periods of apnea during the night and pulse ox is dropping down to 64% with sleeping. Patient also has a pulse ox of 86% after taking 2 steps without oxygen during the day. Patient has difficulty monitoring blood sugars and managing at home. Follow-up will be set up with Dr. Tejeda from endocrinology. Patient is also to have BiPAP at home and be scheduled for outpatient sleep study. Patient states her breathing status is improved since she's been here. We will discharge home today in stable condition. Discharge diagnoses: 1. Acute hypoxic and hypercapnic respiratory failure secondary to acute on chronic diastolic heart failure, severe copd, possible bronchitis, ILD . 2. Diabetes mellitus type 2 uncontrolled secondary to hypoglycemic and hyperglycemia. 3. Severe COPD with acute on chronic hypoxic respiratory failure requiring home O2. 4. Diabetic neuropathy. 5. Hypothyroidism. 6. Hyperlipidemia. 7. Hypertension. Discharge plan: home Impression and plan of care have been directed as dictated by the signing physician. Hermelinda Gunter nurse practitioner acting as scribe for signing physician. Patient Condition at Discharge: Good Plan - Discharge Summary Discharge Rx Participant: No New Discharge Prescriptions: New Aspirin 81 mg PO DAILY chew Cefuroxime Axetil [Ceftin] 500 mg PO BID #10 tab Ipratropium-Albuterol Nebulize [Duoneb 0.5 mg-3 mg/3 ml Soln] 3 ml INHALATION RT-QID #120 ampul.neb Metolazone [Zaroxolyn] 2.5 mg PO Q48H #30 tab Montelukast [Singulair] 10 mg PO HS #30 tab predniSONE 0 mg PO DIRECTED #34 tab Spironolactone [Aldactone] 25 mg PO BID #60 tab Continue Metoprolol Succinate (ER) [Toprol XL] 50 mg PO DAILY Levothyroxine Sodium [Synthroid] 150 mcg PO DAILY Atorvastatin [Lipitor] 20 mg PO DAILY Gemfibrozil [Lopid] 600 mg PO AC-BID Insulin Aspart [NovoLOG (formulary)] 12 unit SQ AC-TID Famotidine [Pepcid] 20 mg PO DAILY #60 tab Furosemide [Lasix] 40 mg PO BID #60 tablet Benzonatate [Tessalon Perles] 100 mg PO TID Insulin Glargine [Lantus] 40 units SQ BID Discontinued Gabapentin [Neurontin] 100 mg PO TID Spironolactone [Aldactone] 25 mg PO HS Discharge Medication List Atorvastatin [Lipitor] 20 mg PO DAILY 05/05/18 [History] Gemfibrozil [Lopid] 600 mg PO AC-BID 05/05/18 [History] Insulin Aspart [NovoLOG (formulary)] 12 unit SQ AC-TID 05/05/18 [History] Levothyroxine Sodium [Synthroid] 150 mcg PO DAILY 05/05/18 [History] Metoprolol Succinate (ER) [Toprol XL] 50 mg PO DAILY 05/05/18 [History] Famotidine [Pepcid] 20 mg PO DAILY #60 tab 05/10/18 [Rx] Furosemide [Lasix] 40 mg PO BID #60 tablet 05/10/18 [Rx] Benzonatate [Tessalon Perles] 100 mg PO TID 05/16/18 [History] Insulin Glargine [Lantus] 40 units SQ BID 05/16/18 [History] Aspirin 81 mg PO DAILY chew 05/20/18 [Rx] Cefuroxime Axetil [Ceftin] 500 mg PO BID #10 tab 05/20/18 [Rx] Ipratropium-Albuterol Nebulize [Duoneb 0.5 mg-3 mg/3 ml Soln] 3 ml INHALATION RT -QID #120 ampul.neb 05/20/18 [Rx] Metolazone [Zaroxolyn] 2.5 mg PO Q48H #30 tab 05/20/18 [Rx] Montelukast [Singulair] 10 mg PO HS #30 tab 05/20/18 [Rx] Spironolactone [Aldactone] 25 mg PO BID #60 tab 05/20/18 [Rx] predniSONE 0 mg PO DIRECTED #34 tab 05/20/18 [Rx] Follow up Appointment(s)/Referral(s): Bakari Harrell MD [REFERRING] - 05/29/18 7:30 am Tan Herndon MD [Primary Care Provider] - 05/27/18 1:00 pm Maikel Shaw MD [STAFF PHYSICIAN] - 05/22/18 4:00 pm Activity/Diet/Wound Care/Special Instructions: [phone] Discharge Disposition: HOME SELF-CARE
== END 2018-05-20 16:24 | disposition home or self-care (01) | DRG 291 ==
LOC: EC 17:02 → 3SUR 20:17 → 3OBS 05-18 01:09 → OBSVTOIN 05-18 05:44 → 5MS5E 05-19 18:40
PROVIDERS: ADMIT Internal Medicine; ATTEND Internal Medicine
DX: I11.0 Hypertensive heart disease with heart failure (principal); J96.21 Acute and chronic respiratory failure with hypoxia; J96.22 Acute and chronic respiratory failure with hypercapnia; J98.11 Atelectasis; E66.2 Morbid (severe) obesity with alveolar hypoventilation; Z68.42 Body mass index [BMI] 45.0-49.9, adult; J45.901 Unspecified asthma with (acute) exacerbation; J84.9 Interstitial pulmonary disease, unspecified; I50.33 Acute on chronic diastolic (congestive) heart failure; Z79.4 Long term (current) use of insulin; Z79.899 Other long term (current) drug therapy; E11.65 Type 2 diabetes mellitus with hyperglycemia; E11.40 Type 2 diabetes mellitus with diabetic neuropathy, unspecified; E78.5 Hyperlipidemia, unspecified; R63.5 Abnormal weight gain; E03.9 Hypothyroidism, unspecified; Z79.890 Hormone replacement therapy; G47.33 Obstructive sleep apnea (adult) (pediatric); I25.2 Old myocardial infarction; I27.29 Other secondary pulmonary hypertension; J44.9 Chronic obstructive pulmonary disease, unspecified; Z80.41 Family history of malignant neoplasm of ovary; Z82.49 Family history of ischemic heart disease and other diseases of the circulatory system; Z99.81 Dependence on supplemental oxygen; R74.8 Abnormal levels of other serum enzymes; Z87.01 Personal history of pneumonia (recurrent)
CPT/HCPCS: 36415; 36600; 71046; 80053; 82550; 82553; 82805; 83036; 83735; 83880; 84484; 85025; 85379; 85610; 85730; 87040; 93005; 94640; 94660; 94760; 96374; 99285